=== PATIENT | female | born 1980 | race Caucasian/White ===

== ENCOUNTER 2023-09-03 10:30 | Emergency (ER) | payer MEDICAID, SELFPAY ==
[2023-09-03 10:38] VITALS: BP 99/71; PULSE 102; RESP 16; TEMP 36.5; O2SAT 96
--- NOTE | 2023-09-03 11:18 | DI.RAD_ITS ---
Exam(s) XR FOOT RT COMPLETE EXAM: XR FOOT RT COMPLETE CLINICAL HISTORY: Foot injury. TECHNIQUE: 2D digital imaging was performed of the right foot. Three images were obtained. AP, obl ique and lateral views were obtained. COMPARISON: No exams were available for comparison FINDINGS: BONES: No acute fracture is present. No bony destructive lesion is seen. There is a small enthesophyt e at the posterior calcaneus. JOINTS: No dislocation present. SOFT TISSUE: Normal. IMPRESSION: No acute abnormality. DATA REPOSITORY: RADIATION DOSE DELIVERED:
--- NOTE | 2023-09-03 11:22 | ED.GENADUL_ITS ---
Discharge Plan Disposition Patient Disposition: Home Condition: Stable Discharge Details Clinical Impression: Foot sprain, Contusion of foot Primary Care Provider: Unknown,Unknown ED Provider: Alena Chavez Home Meds and New Rx's Prescriptions: No Action oxycodone 5 mg tablet 7.5 mg PO 5X/DAY Patient Comments: took at 0200 dextroamphetamine-amphetamine [Adderall] 30 mg tablet 30 mg PO DAILY estradiol [Estrace] 1 mg tablet 1 mg PO DAILY Rx Instructions: off 1 week; repeat cycle trazodone 50 mg tablet 50 mg PO QHS PRN Discharge Instructions Instructions: Using Cold for Pain, Minor Contusion ED, Foot Sprain ED Additional Instructions: No evidence of fracture or broken bone noted on x-ray. He may ice, elevate compression for the next 2 to 3 days. Wrap with an Paramjit bandage. Use crutches as needed for comfort weightbearing as tolerated, advance as tolerated. Please take Tylenol or Ibuprofen with food every 4-6 hours as needed for pain and swelling. Follow up with primary care provider in 3-5 days. Return to ED sooner if any worsening or concerns. Stand Alone Forms: Work Release Discharge Data Discharge Date/Time-TO BE ENTERED AT DEPARTURE: 09/03/23 12:54 HPI General Mode of arrival: wheelchair . Date/Time Provider Initiated Documentation: 09/03/23 10:33 . Limitations to Documentation: no limitations . Information obtained by: patient, RN notes reviewed and old records reviewed . HPI Narrative: 43-year-old female presents with right lateral foot pain after mechanical injury at around 2 AM this morning. Patient reports she was coming into the kitchen around an island and accidentally kicked the island, no obvious deformity noted however she does have some superficial abrasions noted to the dorsal side of her toes, some ecchymosis and swelling noted to the dorsum of her foot. Denies any ankle pain, lower leg pain or knee pain. No other associated symptoms or concerns. Patient did take 7.5 mg of oxycodone after the incident. Related Data Home Medications ?Medication ?Instructions ?Recorded ?Confirmed dextroamphetamine-amphetamine 30 30 mg PO DAILY 09/03/23 09/03/23 mg tablet (Adderall) estradiol 1 mg tablet (Estrace) 1 mg PO DAILY 09/03/23 09/03/23 oxycodone 5 mg tablet 7.5 mg PO 5X/DAY 09/03/23 09/03/23 trazodone 50 mg tablet 50 mg PO QHS PRN 09/03/23 09/03/23 Allergies Allergy/AdvReac Type Severity Reaction Status Date / Time Penicillins Allergy Intermediate Hives Verified 09/03/23 10:35 sulfamethoxazole (From Allergy Intermediate Anaphylaxis Verified 09/03/23 10:35 Bactrim) trimethoprim (From Bactrim) Allergy Intermediate Anaphylaxis Verified 09/03/23 10:35 prednisone AdvReac Mild Other (See Verified 09/03/23 10:35 Comment) General Stated Complaint: Orthopedic ELVIRA: 4 Review of Systems Musculoskeletal Musculoskeletal: Reports as per HPI, Reports arthralgias and Reports joint swelling Integumentary/Breasts Skin/Breast: Reports skin swelling and Reports wounds (Superficial abrasions noted to the toes and contusion noted dorsal foot) Exam Extrem Right lower extremity: ankle Details: normal to inspection; no tenderness and no swelling and foot Details: normal capillary refill, abnormal to inspection, tenderness Location: of the dorsal foot and of the lateral foot, abnormal ROM of toe, no edema and abrasion dorsal lateral 5th toe Details: multiple; no foreign bodies and no puncture wound Ankle/foot/toe images: 2 1. Swelling contusion mild superficial abrasions noted to fifth fourth and third toes on the dorsal aspect Course Vital Signs Vital signs: Vital Signs Temperature 36.5 C 09/03/23 10:38 Pulse 102 H 09/03/23 10:38 Respiratory Rate 16 09/03/23 10:38 Blood Pressure 99/71 L 09/03/23 10:38 Pulse Oximetry 96 09/03/23 10:38 Temperature 36.5 C 09/03/23 10:38 Temperature Source Temporal Artery Scan 09/03/23 10:38 Pulse 102 H 09/03/23 10:38 Respiratory Rate 16 09/03/23 10:38 Respiratory Effort Normal, Non-Labored 09/03/23 10:40 Blood Pressure 99/71 L 09/03/23 10:38 Blood Pressure Position Sitting 09/03/23 10:38 Pulse Oximetry 96 09/03/23 10:38 Oxygen Delivery Method Room Air 09/03/23 10:38 Oxygen Flow Rate 0 09/03/23 10:38 Pain Level 6 09/03/23 10:50 Medical Decision Making 43-year-old female presents with right lateral foot pain after mechanical injury at around 2 AM this morning. Patient reports she was coming into the kitchen around an island and accidentally kicked the island, no obvious deformity noted however she does have some superficial abrasions noted to the dorsal side of her toes, some ecchymosis and swelling noted to the dorsum of her foot. Denies any ankle pain, lower leg pain or knee pain. No other associated symptoms or concerns. Patient did take 7.5 mg of oxycodone after the incident. X-ray obtained right foot, no evidence of acute fracture noted. Patient given crutches and Paramjit wrap and instructed on RICE procedures. This text was generated using [employer] dictation system, please disregard any oddities of phrase or misspellings. Imaging Data Radiologic Study #2: Imaging: X-Ray Radiologist's impression: XR FOOT RT COMPLETE EXAM: XR FOOT RT COMPLETE CLINICAL HISTORY: Foot injury. TECHNIQUE: 2D digital imaging was performed of the right foot. Three images were obtained. AP, oblique and lateral views were obtained. COMPARISON: No exams were available for comparison FINDINGS: BONES: No acute fracture is present. No bony destructive lesion is seen. There is a small enthesophyte at the posterior calcaneus. JOINTS: No dislocation present. SOFT TISSUE: Normal. IMPRESSION: No acute abnormality. Quality:SDOH Health Related Social Needs: 2 No Data to Display PFSH All Active Problems (Updated 09/03/23 @ 12:28 by Alena Chavez NP) Contusion of foot (Acute) Foot sprain (Acute) Social History Smoking/Tobacco Use Status: Never Smoking risk assessment performed?: Yes Alcohol Intake: never Drug use: Never Substance use type: does not use Housing: house Do you feel safe at home: Yes Do you feel safe in your relationship?: Yes
--- OUTSIDE RECORDS SUMMARY | 2023-09-03 11:39 | XMS_ITS | Continuity of Care Document ---
Author Organization [facility] Address [address] [place] [address] Care Team Providers Care Manager Ambulatory Name Role Phone Demario Patiño Primary Care Physician [phone] [facility] NBR [id number] Date(s): 03/16/22 - 03/16/22 [facility] [address], [place] [address] Encounter Diagnosis Biceps tendinitis of left upper extremity(Discharge Diagnosis) - 03/16/22 Sprain of left acromioclavicular joint, initial encounter(Discharge Diagnosis) - 03/16/22 Subacromial impingement of left shoulder(Discharge Diagnosis) - 03/16/22 Discharge Disposition: Home or Self Care Attending Physician: YANET Helm Allergies, Adverse Reactions, Alerts Substance Reaction Severity Status erythromycin Rash Unknown Active penicillin Rash Mild Active predniSONE Thrush Other Moderate Active Bactrim Rash Mild Active Assessment and Plan Future Appointments Functional Status 03/16/22 Other exposure to Infectious Disease Non e Medications Adderall 30 mg oral tablet 30 mg 1 tab, Oral, BID, 0 Refill(s) Start Date: 11/22/21 Status: Ordered oxyCODONE 15 mg oral tablet See Instructions, PRN as needed for pain, 1/2 tab Oral, max 5 per day, # 28 tab, 0 Refill(s), Pharmacy: [facility], 152, cm, 01/11/22 12:50:00 EST, Height/Length Dosing, 59, kg, 01/11/22 12:50:00 EST, Weight Dosing Start Date: 01/24/22 Status: Ordered oxyCODONE 7.5 mg oral tablet 7.5 mg = 1 tab, Oral, every 4 hr, 0 Refill(s) Start Date: 11/22/21 Status: Ordered Problem List Condition Confirmation Course Effective Dates Status H ealth Status Informant Acute bilateral low back pain Confirmed Active ADD - Attention deficit disorder Confirmed Active Anxiety disorder Confirmed Active Bacterial pneumonia Confirmed Active Fibromyalgia Confirmed Active H/O: migraine Confirmed Active History of COVID-19 1 Confirmed Active Numbness 2 Confirmed Active Pleurisy Confirmed Active PONV - Postoperative nausea and vomiting Confirmed Active Rheumatic arthritis 3 Confirmed Active 1moderate resp symptoms 2left fingers 3? Procedures Procedure Date Related Diagnosis Body Site Status Arthroscopy Shoulder with AD SLAP RCR (Left) 1 01/16/22 Completed Tenodesis Biceps 2 01/16/22 Comple percy Appendectomy Completed Bilateral tubal ligation Completed Cholecystectomy Completed Dilation and curettage 3 Completed Hysterectomy 4 Completed 1auto-populated from documented surgical case 2auto-populated from documented surgical case 3x2 4vaginal lap assisted Vital Signs Most recent to oldest [Reference Range]: 1 Peripheral Pulse Rate [60-100 bpm] 80 bp m (03/16/22 10:58 AM) Blood Pressure [90-140/60-90 mmHg] 130/8 6mmHg (03/16/22 10:58 AM) Weight 58.97 kg (03/16/22 10:58 AM) Weight Measured (lbs) 130.006 lb (03/16/22 10:58 AM) Height 152.40 cm (03/16/22 10:58 AM) Height/Length Measured (inches) 60 inch (03/16/22 10:58 AM) BSA Measured 1.58 m2 (03/16/22 10:58 AM) Body Mass Index 25.39 kg/m2 (03/16/22 10:58 AM) Social History Social History Type Response Tobacco Current everyday tob acco user Tobacco Use:. 1 PACK PER DAY per day. 15 year(s). Sex Implantable Device List Procedure Provider Procedure Date Device Type Site Tenodesis Biceps Dionte Butler MD 01/16/22 Non Biological Shoulder L Device Identifier Serial Number Lot or Batch Number Manufacturing Date Expiration Date Distinct Identification Code MRI Safety Implantable Status Assigning Authority Unknown Unknown [id number] Unknown 11/10/26 Unknown Unknown Active Unknown Physician Outpatient Note * YANET Helm: PERFORM Event Display: Office Clinic Note Physician Authored Date: [id number] HIRAM FLORES :1980 Age:41 years Sex:Female Visit Date:03/16/2022 Primary Care Physician: Demario Patiño Chief Complaint left shoulder 2nd pov History of Present Illness The patient comes in today with left shoulder pain status post surgery on 01/16/2022.?? She has beenhaving some difficulty in getting her range of motion back with therapy.?? Her motion is limited due to pain. ??She has been doing her exercises at home. ??There has been some issues in having car available to drive to appointments but this is mostly been resolved. ??She has been religiously doing her exercises at home. ??She does have more physical therapy visits made already.?? She denies any numbness or tingling. ??She does get sharp pain in the lateral aspect of her shoulder at times. Physical Exam Vitals & Measurements HR:??80??(Peripheral)?? BP:??130/86?? SpO2:??98%?? HT:??152.40??cm?? WT:??58.97??kg?? BMI:??25.39?? Pain Score:??5?? BSA:??1.58?? General: Alert and oriented x3, pleasant cooperative, in no acute distress, appears to be their stated age, is generally fit appearing.? Left shoulder: Well-healed postoperative incisions. ??Passive forward elevation is comfortable to about 150.?? External rotation is to about 30. ??Internal rotation is to her ASIS.?? Range of motion of her elbow wrist and hand is full. ??Positive Neer's and Peralta testing with tenderness over he r??supraspinatus insertion point.?? Skin distally is pink warm and dry. Assessment/Plan 1.??Biceps tendinitis of left upper extremity??M75.22 2.??Sprain of left acromioclavicular joint, initial encounter??S43.52XA 3.??Subacromial impingement of left shoulder??M75.42 The patient??seems to be making slow progress with her left shoulder.?? Hopefully physical therapy can progress her. ??I counseled her at length on using a lot of ice and Tylenol??after her exercises. ??I am hoping that??things improve in regards to motion so that they can start to strengthen soon.??We will see her back in 6 weeks for a follow-up. Problem List/Past Medical History Ongoing Acute bilateral low back pain ADD - Attention deficit disorder Anxiety disorder Bacterial pneumonia Fibromyalgia H/O: migraine History of COVID-19 Numbness Pleurisy PONV - Postoperative nausea and vomiting Rheumatic arthritis Historical No qualifying data Procedure/Surgical History ???Arthroscopy Shoulder with MARY ALICE SLAP RCR (Left) (01/16/2022)???Tenodesis Biceps (01/16/2022)???Appendectomy???Bilateral tubal ligation???Cholecystectomy???Dilation and curettage???Hysterectomy Medications Adderall 30 mg oral tablet, 30 mg= 1 tab, Oral, BID oxyCODONE 15 mg oral tablet, See Instructions, PRN oxyCODONE 7.5 mg oral tablet, 7.5 mg= 1 tab, Oral, every 4 hr Allergies predniSONE??(Thrush, Other) Bactrim??(Rash) penicillin??(Rash) erythromycin??(Rash) Social History Alcohol Current, Beer- Comments: OCCASIONALLY Electronic Cigarette/Vaping Electronic Cigarette Use: Never. Employment/School Unemployed Substance Use Never Tobacco Current everyday tobacco user Tobacco Use:. 1 PACK PER DAY per day. 15 year(s). Family History Cancer: Mother. Clotting and bleeding disorders: Mother. Hyperlipidemia: Father. Electronically Signed on 03/16/22 12:35 PM YANET Helm Patient Care team information Personnel Name: NoellesteffiDemario eldridge Address: Address: [address]
--- OUTSIDE RECORDS SUMMARY | 2023-09-03 11:40 | XMS_ITS | Continuity of Care Document ---
Author Organization [facility] Address [address] [place] [id number] Care Team Providers Care Staple Fiber Washer Name Role Phone Demario Patiño Primary Care Physician [phone] Encounter [facility] NBR [id number] Date(s): 06/06/22 - 06/06/[address] [address] Discharge Disposition: Home or Self Care Attending Physician: YANET Helm Admitting Physician: YANET Helm Referring Physician: YANET Helm Allergies, Adverse Reactions, Alerts Substance Reaction Severity Status erythromycin Rash Unknown Active penicillin Rash Mild Active predniSONE Thrush Other Moderate Active Bactrim Rash Mild Active Medications Adderall 30 mg oral tablet 30 mg 1 tab, Oral, BID, 0 Refill(s) Start Date: 11/22/21 Status: Ordered oxyCODONE 15 mg oral tablet See Instructions, PRN as needed for pain, 1/2 tab Oral, max 5 per day, # 28 tab, 0 Refill(s), Pharmacy: [facility], 152, cm, 01/11/22 12:50:00 EST, [...] 1 Confirmed Active Numbness 2 Confirmed Active Numbness and tingling in left hand Confirmed Active Pleurisy Confirmed Active PONV - [...] documented surgical case 3x2 4vaginal lap assisted Results Radiology Reports * Exam Date Time Procedure Performing Provider Status 06/06/22 9:51 AM XR Spine Cervical 2 or 3 Views Gallo Barroso; Farooq (Verified) Notes: (XR Spine Cervical 2 or 3 Views) Reason For Exam: Cervical pain and stiffness XR Spine Cervical 2 or 3 Views EXAM DESCRIPTION: XR Spine Cervical 2 or 3 Views 06/06/2022 INDICATION: CERVICAL PAIN AND STIFFNESS COMPARISON: None IMPRESSION: No acute fracture or subluxation. Prevertebral soft tissues are within normal limits No significant spondylotic changes. Intervertebral disc spaces are well maintained throughout the cervical region. Mild facet arthritic changes are suspected bilaterally. JOB #: [id number] Final Signed by: Nelson Barnes MD Signed (Electronic Signature): 06/06/2022 1:03 pm Social History Social History Type Response Tobacco [...] Safety Implantable Status Assigning Authority Unknown Unknown [id number] 1 Unknown 11/10/26 Unknown Unknown Active Unknown XR Cervical spine 2 or 3 Views * Nelson Barnes MD: VERIFY, VERIFY Event Display: Report EXAM DESCRIPTION: XR Spine Cervical 2 or 3 Views 06/06/2022 INDICATION: CERVICAL PAIN AND STIFFNESS COMPARISON: None IMPRESSION: No acute fracture or subluxation. Prevertebral soft tissues are within normal limits No significant spondylotic changes. Intervertebral disc spaces are well maintained throughout the cervical region. Mild facet arthritic changes are suspected bilaterally. JOB #: [id number] Final Signed by: Nelson Barnes MD Signed (Electronic Signature): 06/06/2022 1:03 pm Patient Care team information Care Team Personnel Name: Demario Patiño Position: No Access Member Role: Primary Care Physician Address: Address: [address] Care Team Related Persons Name: NICK GALAVIZ Address: Home [address] [id number] [facility] Name: JENNIFER QUINN Name: LORI FLORES
--- OUTSIDE RECORDS SUMMARY | 2023-09-03 11:40 | XMS_ITS | Continuity of Care Document ---
Author Organization [facility] Address [address] [place] [address] Care Team Providers Care Turn Operator Name Role Phone Demario Patiño Primary Care Physician Encounter [facility] NBR [id number] Date(s): 01/24/22 - 01/24/22 [facility] [address] [place], [place] [address] Encounter Diagnosis Biceps tendinitis of left upper extremity(Discharge Diagnosis) - 01/24/22 Sprain of left acromioclavicular joint, initial encounter(Discharge Diagnosis) - 01/24/22 Subacromial impingement of left shoulder(Discharge Diagnosis) - 01/24/22 Discharge Disposition: Home or Self Care Attending Physician: YANET Helm Allergies, Adverse Reactions, Alerts Substance Reaction Severity Status erythromycin Rash Unknown Active penicillin Rash Mild Active predniSONE Thrush Other Moderate Active Bactrim Rash Mild Active Assessment and Plan Future Appointments Functional Status 01/24/22 Other exposure to Infectious Disease Non e Medications Adderall 30 mg oral tablet 30 mg 1 tab, Oral, BID, 0 Refill(s) Start Date: 11/22/21 Status: Ordered oxyCODONE 15 mg oral tablet See Instructions, PRN as needed for pain, 1/2 tab Oral, max 5 per day, # 28 tab, 0 Refill(s), Pharmacy: [facility], 152, cm, 01/11/22 12:50:00 EST, Height/Length [...] Range]: 1 Peripheral Pulse Rate [60-100 bpm] 104 b pm *HI* (01/24/22 9:52 AM) Blood Pressure [90-140/60-90 mmHg] 110/8 0mmHg (01/24/22 9:52 AM) Weight 59 kg (01/24/22 9:52 AM) Weight Measured (lbs) 130.073 lb (01/24/22 9:52 AM) Height 152 cm (01/24/22 9:52 AM) Height/Length Measured (inches) 59.84 in ch (01/24/22 9:52 AM) BSA Measured 1.58 m2 (01/24/22 9:52 AM) Body Mass Index 25.54 kg/m2 (01/24/22 9:52 AM) Social History Social History Type Response [...] Safety Implantable Status Assigning Authority Unknown Unknown [id number] 1 Unknown 11/10/26 Unknown Unknown Active Unknown Physician Outpatient Note * YANET Helm: PERFORM Event Display: Office Clinic Note Physician Authored Date: [id number] HIRAM FLORES :1980 Age:41 years Sex:Female Visit Date:01/24/2022 Primary Care Physician: Demario Patiño Chief Complaint L shoulder (POV #1) History of Present Illness The patient comes in today status post surgery 1 week ago. ??She had a left shoulder MARY ALICE, DCR,??extensive debridement,??and OBT.?? She has been in quite a bit of pain. ??Unfortunately there was miscommunication and her opiate prescriber??was??unaware that she was having surgery.?? She had to use double her normal amount of pain medicine. ??As she had already??filled 140 tablet??refill of Percocet, we were unable to give a new prescription at the day of surgery.?? She is still in a lot of pain and is out of her pain medicine. ??She has been using her sling and has been doing her exercises. ??She has been taking her aspirin and using ice and Tylenol. Physical Exam Vitals & Measurements HR:??104??(Peripheral)?? BP:??110/80?? SpO2:??97%?? HT:??152??cm?? WT:??59??kg?? BMI:??25.54?? Pain Score:??7?? BSA:??1.58?? Left shoulder has??well approximated incisions without any signs of bleeding or discharge. ??Passive forward elevation is to 60.?? External rotation??is to about 30. ??She can perform hand to chest wall. ??Range of motion of her elbow is stiff but full. ??Skin distally is pink warm and dry. Assessment/Plan 1.??Biceps tendinitis of left upper extremity??M75.22 2.??Sprain of left acromioclavicular joint, initial encounter??S43.52XA 3.??Subacromial impingement of left shoulder??M75.42 The patient comes in today status post the aforementioned procedure. ??I will be giving her a refill of her medication per instructions from her normal prescriber. ??We will do 7.5 mg Percocet??1 tablet up to 5 times a day. ??Her refill from her normal prescriber will be occurring on 02/03/2022 andshe will continue to??get pain medicine from??from them.?? We will get her started on physical therapy. ??We will see her back in 6 weeks. Problem List/Past Medical History Ongoing Acute bilateral low back pain ADD - Attention deficit disorder Anxiety disorder Bacterial pneumonia Fibromyalgia H/O: migraine History of COVID-19 Numbness Pleurisy PONV - Postoperative nausea and vomiting Rheumatic arthritis Historical No qualifying data Procedure/Surgical History ???Arthroscopy Shoulder with MARY ALICE SLAP RCR (Left) (01/16/2022)???Tenodesis Biceps (01/16/2022)???Appendectomy???Bilateral tubal ligation???Cholecystectomy???Dilation and curettage???Hysterectomy Medications !-Percocet 7.5/325 oral tablet, See Instructions, PRN Adderall 30 mg oral tablet, 30 mg= 1 tab, Oral, BID oxyCODONE 7.5 mg oral tablet, 7.5 mg= [...] disorders: Mother. Hyperlipidemia: Father. Electronically Signed on 01/24/22 03:26 PM YANET Helm Patient Care team information Personnel Name: Demario Patiño Address: Address: [address]
--- OUTSIDE RECORDS SUMMARY | 2023-09-03 11:40 | XMS_ITS | Continuity of Care Document ---
Author Organization [facility] Address [address] [place] [address] Care Team Providers Care Hardness Inspector Name Role Phone Demario Patiño Primary Care Physician [phone] Encounter [facility] NBR [id number] Date(s): 05/30/22 - 05/30/[address] [address]- [place] Discharge Disposition: Home or Self Care Attending Physician: YANET Helm Admitting Physician: YANET Helm Allergies, Adverse Reactions, Alerts Substance Reaction Severity Status erythromycin Rash Unknown Active penicillin Rash Mild Active predniSONE Thrush Other Moderate Active Bactrim Rash Mild Active Assessment and Plan Future Appointments Future Scheduled Tests Radiology* XR Spine Cervical 2 or 3 Views 04/18/22 Medications Adderall 30 mg oral tablet 30 mg 1 tab, Oral, BID, 0 Refill(s) Start Date: 11/22/21 Status: Ordered oxyCODONE 15 mg oral tablet See Instructions, PRN as needed for pain, 1/2 tab Oral, max 5 per day, # 28 tab, 0 Refill(s), Pharmacy: [facility], 152, cm, 01/11/22 12:50:00 EST, [...] documented surgical case 3x2 4vaginal lap assisted Social History Social History Type Response Tobacco [...] Safety Implantable Status Assigning Authority Unknown Unknown [id number] 1 Unknown 11/10/26 Unknown Unknown Active Unknown Patient Care team information Care Team Personnel Name: Demario Patiño Position: No Access Member Role: Primary Care Physician Address: Address: [address] Care Team Related Persons Name: NICK GALAVIZ Address: Home [address] [id number] [facility] Name: JENNIFER QUINN Name: LORI FLORES
--- OUTSIDE RECORDS SUMMARY | 2023-09-03 11:40 | XMS_ITS | Continuity of Care Document ---
Author Organization [facility] Address [address] [place] [address] Care Team Providers Care Pillowcase Cutter Name Role Phone Demario Patiño Primary Care Physician [phone] Encounter [facility] NBR [id number] Date(s): 04/18/22 - 04/18/22 [facility] [address], [place] [address] [place] Encounter Diagnosis Biceps tendinitis of left shoulder(Discharge Diagnosis) - 04/18/22 Subacromial impingement of left shoulder(Discharge Diagnosis) - 04/18/22 Cervical myofascial strain(Discharge Diagnosis) - 04/18/22 Discharge Disposition: Home or Self Care Attending Physician: Dionte Butler MD Allergies, Adverse Reactions, Alerts Substance Reaction Severity Status erythromycin Rash Unknown Active penicillin Rash Mild Active predniSONE Thrush Other Moderate Active Bactrim Rash Mild Active Assessment and Plan Future Appointments Future Scheduled Tests Radiology* XR Spine Cervical 2 or 3 Views 04/18/22 Functional Status 04/18/22 Other exposure to Infectious Disease Non e Medications Adderall 30 mg oral tablet 30 mg 1 tab, Oral, BID, 0 Refill(s) Start Date: 11/22/21 Status: Ordered oxyCODONE 15 mg oral tablet See Instructions, PRN as needed for pain, 1/2 tab Oral, max 5 per day, # 28 tab, 0 Refill(s), Pharmacy: [facility], 152, cm, 01/11/22 12:50:00 EST, [...] Range]: 1 Peripheral Pulse Rate [60-100 bpm] 75 bp m (04/18/22 10:18 AM) Blood Pressure [90-140/60-90 mmHg] 110/8 0mmHg (04/18/22 10:18 AM) Weight 60.33 kg (04/18/22 10:18 AM) Weight Measured (lbs) 133.005 lb (04/18/22 10:18 AM) Height 152.4 cm (04/18/22 10:18 AM) Height/Length Measured (inches) 60 inch (04/18/22 10:18 AM) BSA Measured 1.6 m2 (04/18/22 10:18 AM) Body Mass Index 25.98 kg/m2 (04/18/22 10:18 AM) Social History Social History Type Response [...] Safety Implantable Status Assigning Authority Unknown Unknown [id number] Unknown 11/10/26 Unknown Unknown Active Unknown Hospital Discharge Instructions Follow Up Care 01/23/2022 14:41:57 With:Follow up with Orthopedic Address: When:Within 6 Week(s) Physician Outpatient Note * Dionte Butler MD: PERFORM Event Display: Office Clinic Note Physician Authored Date: [id number] HIRAM FLORES :1980 Age:41 years Sex:Female Visit Date:04/18/2022 Primary Care Physician: Demario Patiño Chief Complaint LEFT SHOULDER 3 MONTH History of Present Illness The patient presents for follow-up of her left shoulder status post MARY ALICE, DCR, debridement, and OBTon 01/16/2022.?? She has had issues with regaining motion of??her left shoulder secondary to compliance issues??with physical therapy.?? She states that she has been faithful about an HEP but stopped physical therapy??as she has been??dealing with her daughter??who has had recurrent kidney issues.??She states that she has regained??much of her range of motion. ??She continues with soreness anteriorly about the shoulder.?? She believes that??her progress has been limited by trapezial pain that radiates to her neck and has noticed stiffness of her neck since the time of her incident.?? The patient has had??numbness and tingling in the ulnar 2 digits of her hand and states that her hand will oftentimes feel colder than the right.?? Her neck??and trapezial region have been waking her up at night. ??She has been taking acetaminophen??to address the shoulder. ??She??also takes??chronic oxycodone for back issues and??has intermittently felt that this has helped her shoulder and neck as well. Review of Systems Review of systems is significant for neck pain and stiffness, numbness and tingling in the left upper extremity,??and left shoulder stiffness Physical Exam Vitals & Measurements HR:??75??(Peripheral)?? BP:??110/80?? SpO2:??99%?? HT:??152.4??cm?? WT:??60.33??kg?? BMI:??25.98?? Pain Score:??4?? BSA:??1.6?? The patient's left??upper??extremity is neurovascularly intact. ??Sensation and motor exam are intact distally. ??All digits are warm and pink.?? Surgical wounds are well-healed. ??No Joseph deformity is present. ??Active forward elevation is to 140 degrees. ??External rotation is to 45 degrees. ??Internal rotation behind back is to L2.?? This is in comparison to 170/75/T7 for the right side. ??Passively, she demonstrates full??forward elevation.?? Strength is??5- out of 5 to forward elevation,5 out of 5 to external and internal rotation strength testing. ??She has tenderness about the anterior aspect of the??humeral head??lateral to her bicipital groove. ?? The patient demonstrates decrease??left cervical rotation and bend. ??She demonstrates mild spasm of the trapezius??and??left paracervical musculature.?? L'Hermitte's sign is negative. ??Spurling's test is positive for pain only.?? She demonstrates tenderness about the trapezius and??posterior lateral??left side of her neck. Assessment/Plan 1.??Biceps tendinitis of left shoulder??M75.22 Ordered: XR Spine Cervical 2 or 3 Views, 04/18/22, Routine, Reason: Cervical pain and stiffness, Transport Mode: Ambulatory, Biceps tendinitis of left shoulder Subacromial impingement of left shoulder Cervical myofascial strain ?? 2.??Subacromial impingement of left shoulder??M75.42 Ordered: XR Spine Cervical 2 or 3 Views, 04/18/22, Routine, Reason: Cervical pain and stiffness, Transport Mode: Ambulatory, Biceps tendinitis of left shoulder Subacromial impingement of left shoulder Cervical myofascial strain ?? 3.??Cervical myofascial strain??S16.1XXA Ordered: XR Spine Cervical 2 or 3 Views, 04/18/22, Routine, Reason: Cervical pain and stiffness, Transport Mode: Ambulatory, Biceps tendinitis of left shoulder Subacromial impingement of left shoulder Cervical myofascial strain ?? The patient continues to gradually regain her motion of her left shoulder largely with an HEP.?? Inaddition to the exercises that she is already performing, I counseled the patient on a series of supine, gravity assisted??stretching exercises??to??emphasize terminal forward elevation??and externalrotation motions.?? I also discussed and demonstrated the counter stretch to maximize posterior capsular??stretch to??increase internal rotation behind the back.?? We will furnish the patient with the AAOS exercises for the neck.?? I discussed the possibility of a corticosteroid injection to the left shoulder should she not improve by next visit.?? Should she continue with??neck pain, I would like to obtain cervical spine x-rays on return to clinic. ??The patient verbalized understanding and all questions were answered. Future Orders XR Spine Cervical 2 or 3 Views, 04/18/22, Routine, Reason: Cervical pain and stiffness, Transport Mode: Ambulatory, Biceps tendinitis of left shoulder Subacromial impingement of left shoulder Cervical myofascial strain Follow Up Instructions With When Contact Information Follow up with Orthopedic In 6 weeks Additional Instructions: Problem List/Past Medical History Ongoing Acute bilateral [...] disorders: Mother. Hyperlipidemia: Father. Electronically Signed on 04/18/22 10:50 AM Dionte Butler MD Patient Care team information Care Team Personnel Name: Demario Patiño Position: No Access Member Role: Primary Care Physician Address: Address: [address] [address] [place] Care Team Related Persons Name: NICK GALAVIZ Address: Home [address] [place] [phone] [facility] Name: JENNIFER QUINN Name: LORI FLORES
--- OUTSIDE RECORDS SUMMARY | 2023-09-03 11:40 | XMS_ITS | Continuity of Care Document ---
Author Organization [facility] Address [address] [facility] [place] [address] Care Team Providers Care Spiritual Counselor Name Role Phone Demario Patiño Primary Care Physician [phone] Encounter [facility] NBR [id number] Date(s): 11/22/21 - 11/22/21 [facility] [address] [place] [address] [place] Encounter Diagnosis Subacromial impingement of left shoulder(Discharge Diagnosis) - 11/22/21 Sprain of left acromioclavicular joint, initial encounter(Discharge Diagnosis) - 11/22/21 Biceps tendinitis of left upper extremity(Discharge Diagnosis) - 11/22/21 Discharge Disposition: Home or Self Care Attending Physician: YANET Helm Referring Physician: Demario Patiño Allergies, Adverse Reactions, Alerts Substance Reaction Severity Status penicillin Rash Mild Active predniSONE Other Moderate Active Bactrim Rash Mild Active Medications Adderall 30 mg oral tablet 30 mg 1 tab, Oral, BID, 0 Refill(s) Start Date: 11/22/21 Status: Ordered oxyCODONE 7.5 mg oral tablet 7.5 mg = 1 tab, Oral, every 4 hr, 0 Refill(s) Start Date: 11/22/21 Status: Ordered Problem List Condition Confirmation Course Effective Dates Status Health St atus Informant Acute bilateral low back pain Confirmed Active Vital Signs Most recent to oldest [Reference Range]: 1 Peripheral Pulse Rate [60-100 bpm] 98 bp m (11/22/21 9:49 AM) Blood Pressure [90-140/60-90 mmHg] 118/7 2mmHg (11/22/21 9:49 AM) Weight 56.70 kg (11/22/21 9:49 AM) Weight Measured (lbs) 125.002 lb (11/22/21 9:49 AM) Height 152.40 cm (11/22/21 9:49 AM) Height/Length Measured (inches) 60 inch (11/22/21 9:49 AM) BSA Measured 1.55 m2 (11/22/21 9:49 AM) Body Mass Index 24.41 kg/m2 (11/22/21 9:49 AM) Social History Social History Type Response Tobacco Current everyday tob acco user Tobacco Use:. 1 PACK PER DAY per day. 16 year(s). Sex Hospital Discharge Instructions Follow Up Care 11/07/2021 11:59:50 With:Surgery Address: When: Unknown Patient Care team information Personnel Name: Demario Patiño Address: Address: [address] [address]
--- OUTSIDE RECORDS SUMMARY | 2023-09-03 11:40 | XMS_ITS | Continuity of Care Document ---
Author Organization [facility] Address [address] [place] [address] Care Team Providers Care Product Safety Manager Name Role Phone JOSE PATEL Primary Care Physician Encounter [facility] NBR [id number] Date(s): 10/18/22 - 10/18/[address] [address] [place] Encounter Diagnosis Bronchitis(Discharge Diagnosis) - 10/18/22 Asthma exacerbation(Discharge Diagnosis) - 10/18/22 Knee sprain(Discharge Diagnosis) - 10/18/22 Discharge Disposition: Home or Self Care Attending Physician: Nacho Thomas MD Admitting Physician: Nacho Thomas MD Allergies, Adverse Reactions, Alerts Substance Reaction Severity Status erythromycin Rash Unknown Active penicillin Rash Mild Active predniSONE Thrush Other Moderate Active Bactrim Rash Mild Active Functional Status 10/18/22 Other exposure to Infectious Disease Non e Medications Adderall 30 mg oral tablet 30 mg 1 tab, Oral, BID, 0 Refill(s) Start Date: 11/22/21 Status: Ordered albuterol 90 mcg/inh aerosol inhaler 1 puffs, Inhale, every 4 hr, PRN as needed for wheezing, Dispense 1 spacer, # 8.5 g, 0 Refill(s), 10/25/22 5:36:00 PM CDT, Pharmacy: [facility] #[id number], 152, cm, 10/18/22 17:57:00 EDT, Height/Length Dosing, 60, kg, 10/18/22 17:57:00 EDT, Weight Dosing Start Date: 10/18/22 Stop Date: 10/25/22 Status: Ordered amoxicillin 875 mg oral tablet 875 mg = 1 tab, Oral, BID, X 7 days, # 14 tab, 0 Refill(s), 10/25/22 5:35:00 PM CDT, Pharmacy: [facility] #[id number], 152, cm, 10/18/22 17:57:00 EDT, Height/Length Dosing, 60, kg, 10/18/22 17:57:00 EDT, Weight Dosing Start Date: 10/18/22 Stop Date: 10/25/22 Status: Ordered oxyCODONE 15 mg oral tablet See Instructions, PRN as needed for pain, 1/2 tab Oral, max 5 per day, # 28 tab, 0 Refill(s), Pharmacy: [facility], 152, cm, 01/11/22 12:50:00 EST, Height/Length Dosing, 59, kg, 01/11/22 12:50:00 EST, Weight Dosing Start Date: 01/24/22 Status: Ordered oxyCODONE 7.5 mg oral tablet 7.5 mg = 1 tab, Oral, every 4 hr, 0 Refill(s) Start Date: 11/22/21 Status: Ordered predniSONE 20 mg oral tablet 40 mg = 2 tab, Oral, Daily, PRN wheezing, # 10 tab, 0 Refill(s), Pharmacy: [facility] #[id number], 152, cm, 10/18/22 17:57:00 EDT, Height/Length Dosing, 60, kg, 10/18/22 17:57:00 EDT, Weight Dosing Start Date: 10/18/22 Stop Date: 10/23/22 Status: Ordered Mental Status 10/18/22 Eye Opening Response [place] Spontaneous ly Best Verbal Response [place] Oriented Best Motor Response [place] Obeys comman ds [place] Coma Score 15 Problem List Condition Confirmation Course Effective Dates [...] surgical case 3x2 4vaginal lap assisted Results Laboratory List Name Date SARS-CoV-2 (Covid-19) AG ([facility]) POCT 10/18/22 Most recent to oldest [Reference Range]: 1 SARS-CoV or CoV-2 (COVID-19) Ag ([facility]) [Negative] Negative (10/18/22 4:40 PM) Employed in healthcare? Unknown *NA* (10/18/22 4:40 PM) Symptomatic as defined by CDC? Unknown *NA* (10/18/22 4:40 PM) Date of onset (Lab) Unknown *NA* (10/18/22 4:40 PM) Hospitalized due to COVID-19? Unknown *NA* (10/18/22 4:40 PM) In ICU? Unknown *NA* (10/18/22 4:40 PM) Group care resident? Unknown *NA* (10/18/22 4:40 PM) status? Unknown *NA* (10/18/22 4:40 PM) Radiology Reports * Exam Date Time Procedure Performing Provider Status 10/18/22 6:26 PM XR Chest 1 View Mitch Nichols ( Verified) Notes: (XR Chest 1 View) Reason For Exam: cough XR Chest 1 View PROCEDURE INFORMATION: Exam: XR Chest Exam date and time: 10/18/2022 6:01 PM Age: 42 years old Clinical indication: Cough TECHNIQUE: Imaging protocol: Radiologic exam of the chest. Views: 1 view. COMPARISON: CT CHEST W CONTRAST 08/18/2020 5:07 PM FINDINGS: Lungs: No evidence of focal consolidation. Pleural spaces: Unremarkable. No pleural effusion. No pneumothorax. Heart/Mediastinum: Unremarkable. No cardiomegaly. Bones/joints: Unremarkable. IMPRESSION: No evidence of focal consolidation. THIS DOCUMENT HAS BEEN ELECTRONICALLY SIGNED BY RAPHAEL AZAR MD on 10/18/2022 06:33 PM Final Signed by: Raphael Azar MD Signed (Electronic Signature): 10/18/2022 6:33 pm Vital Signs Most recent to oldest [Reference Range]: 1 2 Temperature Temporal Artery [36-38 Deg C ] 36.1 Deg C (10/18/22 5:17 PM) Peripheral Pulse Rate [60-100 bpm] 80 bp m (10/18/22 6:30 PM) 78 bpm (10/18/22 5:17 PM) Respiratory Rate [12-24 br/min] 16 br/mi n (10/18/22 6:30 PM) 18 br/min (10/18/22 5:17 PM) Blood Pressure [90-140/60-90 mmHg] 103/7 1mmHg (10/18/22 6:30 PM) 130/63mmHg (10/18/22 5:17 PM) Weight Dosing 60.00 kg (10/18/22 5:57 PM) Weight Estimated 60.00 kg (10/18/22 5:17 PM) Height/Length Dosing 152.000 cm (10/18/22 5:57 PM) Height/Length Estimated 152.000 cm (10/18/22 5:17 PM) Social History Social History Type Response Tobacco [...] Safety Implantable Status Assigning Authority Unknown Unknown [id number] 1 Unknown 11/10/26 Unknown Unknown Active Unknown Emergency department Discharge instructions * William CHIN, Nacho Craven: PERFORM Event Display: ED Discharge Information Authored Date: [id number] HIRAM FLORES :1980 Age:42 years Sex:Female Visit Date:10/18/2022 Primary Care Physician: JOSE PATEL Discharge Instructions We would like to thank you for allowing us to assist you with your healthcare needs. The following includes patient education materials and information regarding your injury/illness. Diagnosis from Today's Visit Bronchitis Asthma exacerbation Knee sprain Discharge Vitals Temperature??(Temporal Artery) 97.0 ??F (36.1 ??C) Heart Rate??(Peripheral) 80 Respiratory Rate?? 16 Blood Pressure?? 103/71?? Height?? 59.84 in (152.000 cm) Weight??(Estimated) 132.30 lb (60.00 kg) Allergies predniSONE??(Thrush, Other) Bactrim??(Rash) penicillin??(Rash) erythromycin??(Rash) What to Do Next Instructions from Your Care Team Stop smoking;??it is terrible for your lungs and overall health.?? Increase use of your albuterol inhaler to 1 to 2 puffs up to 4 times a day with a spacer.?? If that does not improve your coughing along with the??antibiotics,??start prednisone 40 mg once a day for 5 days.?? If starting prednisone use nystatin (in the past you have had thrush when you have been on prednisone). ??I am writing you for Augmentin (which is amoxicillin/clavulanic acid);??you have been given it previously with no reactions (although it is penicillin related you apparently have tolerated it with no problems. ??I didnot appreciate a pneumonia on your chest x-ray. ??Return to emergency if you develop high fevers,??coughing up blood, severe shortness of breath, severe chest pain or anything else acutely worsens.??Follow-up with orthopedics regarding your??knee discomfort; you do not have significant fluid in your joint??but if you have??persistent discomfort you should be reevaluated. You were treated today on an emergency basis; it may be noble to contact your primary care provider to notify them of your visit today. You may have been referred to your regular doctor or a specialist, please follow up as instructed. If your condition worsens or you can't get in to see the doctor, contact the Emergency Department. Medications What How Much When Why Instructions Next Dose New albuterol (albuterol 90 mcg/ inh aerosol inhaler) 1 Puffs Inhale (breathe in) Every 4 hours as needed for as needed for wheezing Bronchitis Asthma exacerbation Knee sprain Dispense 1 spacer ?? Pickup at [facility] #[id number] New amoxicillin (amoxicillin 875 mg oral tablet) 1 tab Oral (given by mouth) 2 times a day Bronchitis Asthma exacerbation Knee sprain Duration: 7 Days Pickup at [facility] #[id number] New predniSONE (predniSONE 20 mg oral tablet) 2 tab Oral (given by mouth) Every day as needed for wheezing Bronchitis Asthma exacerbation Knee sprain Duration: 5 Days Pickup at [facility] #[id number] Unchanged dextroamphetamine-amphetamine (Adderall 30 mg oral tablet) 1 tab Oral (given by mouth) 2 times a day Unchanged oxyCODONE (oxyCODONE 15 mg oral tablet) See instructions Biceps tendinitis of left upper extremity Sprain of left acromioclavicular joint, initial encounter Subacromial impingement of left shoulder 1/ 2 ??tab Oral, max 5 per day, As needed for as needed for pain ?? Unchanged oxyCODONE (oxyCODONE 7.5 mg oral tablet) 1 tab Oral (given by mouth) Every 4 hours Pharmacy Information [facility] #[id number]: [address] [place], [place] [phone] Tests Performed Radiology XR Chest 1 View 10/18/2022 18:33 EDT Lab Test Name Test Result Date/Time SARS-CoV or CoV-2 (COVID-19) Ag ([facility]) Negative 10/18/2022 16:40 EDT Employed in healthcare? Unknown 10/18/2022 16:40 EDT Symptomatic as defined by CDC? Unknown 10/18/2022 16:40 EDT Date of onset (Lab) Unknown 10/18/2022 16:40 EDT Hospitalized due to COVID-19? Unknown 10/18/2022 16:40 EDT In ICU? Unknown 10/18/2022 16:40 EDT Group care resident? Unknown 10/18/2022 16:40 EDT status? Unknown 10/18/2022 16:40 EDT Patient/Muffler Mechanic Signature Patient Name:HIRAM FLORES I have received this information and my questions have been answered. Patient/Muffler Mechanic Name: Patient/Muffler Mechanic Signature: Relationship to Patient: Witness Name/Signature: Date: Electronically Signed on: 10/18/2022 19:08 EDTSigned by:MALI Patient Care team information Care Team Personnel Name: JOSE PATEL Position: No Access Member Role: Primary Care Physician Address: Address: [address] Name: Nacho Thomas MD Position: Physician Member Role: ED Physician Address: Address: [facility] [address] [place] [address] Care Team Related Persons Name: NICK GALAVIZ Address: Home [address] [place], [place] [phone] [facility] Address: Mailing [address] [place], [place] [phone] Name: JENNIFER QUINN Name: JENNIFER BURTON Address: Home [address] [place] [address] [facility] Address: Mailing [address] [place], [place] [phone] Name: LORI FLORES
--- OUTSIDE RECORDS SUMMARY | 2023-09-03 11:40 | XMS_ITS | Continuity of Care Document ---
Author Organization [facility] Address [address] [place] [address] Care Team Providers Care Flash Welding Machine Operator Name Role Phone Demario Patiño Primary Care Physician Encounter [facility] NBR [id number] Date(s): 06/06/22 - 06/06/22 [facility] [address] [place] [place], [place] [address] Encounter Diagnosis Numbness and tingling in left hand(Discharge Diagnosis) - 06/06/22 Paresthesia of skin(Discharge Diagnosis) - 06/06/22 Biceps tendinitis of left shoulder(Discharge Diagnosis) - 06/06/22 Cervical myofascial strain(Discharge Diagnosis) - 06/06/22 Subacromial impingement of left shoulder(Discharge Diagnosis) - 06/06/22 Sprain of left acromioclavicular joint, initial encounter(Discharge Diagnosis) - 06/06/22 Discharge Disposition: Home or Self Care Attending Physician: YANET Helm Allergies, Adverse Reactions, Alerts Substance Reaction Severity Status erythromycin Rash Unknown Active penicillin Rash Mild Active predniSONE Thrush Other Moderate Active Bactrim Rash Mild Active Functional Status 06/06/22 Other exposure to Infectious Disease Non e Medications Adderall 30 mg oral tablet 30 mg 1 tab, Oral, BID, 0 Refill(s) Start Date: 11/22/21 Status: Ordered oxyCODONE 15 mg oral tablet See Instructions, PRN as needed for pain, 1/2 tab Oral, max 5 per day, # 28 tab, 0 Refill(s), Pharmacy: [facility], 152, cm, 01/11/22 12:50:00 EST, [...] Range]: 1 Peripheral Pulse Rate [60-100 bpm] 72 bp m (06/06/22 9:47 AM) Blood Pressure [90-140/60-90 mmHg] 118/7 0mmHg (06/06/22 9:47 AM) Weight 61.23 kg (06/06/22 9:47 AM) Weight Measured (lbs) 134.989 lb (06/06/22 9:47 AM) Height 152.4 cm (06/06/22 9:47 AM) Height/Length Measured (inches) 60 inch (06/06/22 9:47 AM) BSA Measured 1.61 m2 (06/06/22 9:47 AM) Body Mass Index 26.36 kg/m2 (06/06/22 9:47 AM) Social History Social History Type Response [...] Safety Implantable Status Assigning Authority Unknown Unknown [id number] Unknown 11/10/26 Unknown Unknown Active Unknown Physician Outpatient Note * YANET Helm: PERFORM Event Display: Office Clinic Note Physician Authored Date: [id number] HIRAM FLORES :1980 Age:42 years Sex:Female Visit Date:06/06/2022 Primary Care Physician: Demario Patiño Chief Complaint LEFT SHOULDER\CSPINE History of Present Illness The patient comes in today status post surgery on 01/16/2022. ??She left shoulder??arthroscopy, MARY ALICE, DCR, debridement, and OBT.?? 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 ??This is made getting to physical therapy difficult for her. ??She has been doing a home exercise program for her shoulder as well as her neck??prescribed by us. ??She is not finding that she has made any improvement with either her neck or her shoulder since last being seen.?? She was complaining of numbness and tingling in her ulnar 2 digits although now she is complaining of left hand numbness and tingling in all of her digits.?? She states that??many years ago, she underwent an EMG nerve conduction study test??done by ??[facility]. ??This had shown mild carpal tunnel syndrome at the time.?? She has been treating this conservatively since that time.?? She continues to get pain in her trapezius on the left side all the way up into her neck.?? Her shoulder is still lacking strength. ??She is trying to do more around the house but the lack of strength is??preventing her??from progressing. Review of Systems Other than the HPI is negative Physical Exam Vitals & Measurements HR:??72??(Peripheral)?? BP:??118/70?? SpO2:??98%?? HT:??152.4??cm?? WT:??61.23??kg?? BMI:??26.36?? Pain Score:??6?? BSA:??1.61?? General: Alert and oriented x3, pleasant cooperative, in no acute distress, appears to be their stated age, is generally fit appearing.? Left shoulder:??Full??range of motion??in all planes although terminal ends of forward elevationis??painful for her.?? Positive Neer's and Epralta testing.?? She has 5- out of 5 strength of forward elevation,??external and internal rotation.?? She does have tight trapezius although no obvious muscle spasms are noted today.?? Range of motion of her neck is limited with??rotation and extension.?? Skin distally is pink warm and dry.?? Mildly positive Phalen's??at the wrist. Assessment/Plan 1.??Numbness and tingling in left hand??R20.0 2.??Biceps tendinitis of left shoulder??M75.22 3.??Cervical myofascial strain??S16.1XXA 4.??Subacromial impingement of left shoulder??M75.42 5.??Sprain of left acromioclavicular joint, initial encounter??S43.52XA Paresthesia of skin??R20.2 The patient comes in today status post the aforementioned procedure on her left shoulder. ??I believe she is in need of formal physical therapy for strengthening and conditioning at this point.?? Shecan arrange her schedule with therapy??as she does have limitations.?? In addition, I would like toobtain an EMG nerve conduction study test as now all of her fingers have numbness and tingling in them. ??She has a prior history of??carpal tunnel syndrome??although??need to evaluate this further at this point.?? We will see her back after the??nerve conduction study test is complete with further suggestions at that time. Referral Orders Referral Management, Medical Service: Neurology, Reason: EMG left upper extremity AVH. rule out carpal tunnel vs cervical radiculopathy, Start: 06/06/22, Instructions: Yo Referral Management, Medical Service: Occupational Therapy, Reason: LRH: Left shoulder strengthening and conditioning, Start: 06/06/22 Problem List/Past Medical History Ongoing Acute bilateral low back pain ADD - Attention deficit disorder Anxiety disorder Bacterial pneumonia Fibromyalgia H/O: migraine History of COVID-19 Numbness Numbness and tingling in left hand Pleurisy PONV - Postoperative nausea and vomiting [...] Clotting and bleeding disorders: Mother. Hyperlipidemia: Father. Diagnostic Results Diagnostic Study Interpretation: X-rays taken today of her cervical spine??are unremarkable??other than??mild facet arthritic changes bilaterally.?? Electronically Signed on 06/06/22 02:11 PM YANET Helm Neurology Progress note * Event Display: Neurology Progress Note Patient Care team information Care Team Personnel Name: Demario Patiño Position: No Access Member Role: Primary Care Physician Address: Address: [address] [address] Care Team Related Persons Name: NICK GALAVIZ Address: Home [address] [phone] [facility] Name: JENNIFER QUINN Name: LORI FLORES
--- OUTSIDE RECORDS SUMMARY | 2023-09-03 11:40 | XMS_ITS | Continuity of Care Document ---
Author Organization [facility] Address [address] [place] [address] Care Team Providers Care Plumber'S Assistant Name Role Phone TROY ANDERSON APRN Primary Care Physician Encounter [facility] NBR [id number] Date(s): 11/29/22 - 11/29/[address] [address]- Encounter Diagnosis Encounter for general adult medical examination with abnormal findings(Final) - Hyperlipidemia, unspecified(Final) - Hyperglycemia, unspecified(Final) - Discharge Disposition: Home or Self Care Attending Physician: MONICA MURILLO ([facility])TROY Admitting Physician: [facility] Allergies, Adverse Reactions, Alerts Substance Reaction Severity Status erythromycin Rash Unknown Active Bactrim Rash Mild Active predniSONE Thrush Other Moderate Active penicillin Rash Mild Active Medications Adderall 30 mg oral tablet 30 mg 1 tab, Oral, BID, 0 Refill(s) Start Date: 11/22/21 Status: Ordered oxyCODONE 15 mg oral tablet See Instructions, PRN as needed for pain, 1/2 tab Oral, max 5 per day, # 28 tab, 0 Refill(s), Pharmacy: [facility], 152, cm, 01/11/22 [...] wheezing, # 10 tab, 0 Refill(s), [facility]acy: [id number], 152, cm, 10/18/22 17:57:00 EDT, Height/Length Dosing, 60, kg, 10/18/22 17:57:00 EDT, Weight Dosing Start Date: 10/18/22 Stop Date: 10/23/22 Status: Ordered Problem List Condition Confirmation Course [...] lap assisted Results Laboratory List Name Date Automated Diff 11/29/22 CBC w/ Diff 11/29/22 Comprehensive Metabolic Panel 11/29/22 Free T4 11/29/22 Hgb A1c 11/29/22 Lipid Panel 11/29/22 Thyroid Stimulating Hormone 11/29/22 Most recent to oldest [Reference Range]: 1 WBC [4.8-10.8 K/mcL] 8.3 K/mcL (11/29/22 9:33 AM) RBC [4.20-5.40 Million/mcL] 4.92 Million /mcL (11/29/22 9:33 AM) Neutro Auto [42.2-75.2 %] 54.9 % (11/29/22 9:33 AM) Lymph Auto [20.5-51.1 %] 33.7 % (11/29/22 9:33 AM) Washburn Auto [1.7-9.3 %] 8.0 % (11/29/22 9:33 AM) Basophil Auto [0.0-0.8 %] 0.5 % (11/29/2233 AM) BUN [8-26 mg/dL] 17 mg/dL (11/29/22:33 AM) Cholesterol Total [129-209 mg/dL] 301 mg /dL *HI* (11/29/22: AM) LDL 229.0 mg/dL 1 *NA* (11/29/22: AM) Glucose Level [74-106 mg/dL] 82 mg/dL (11/29/22: AM) Potassium Level [3.5-5.1 mmol/L] 4.4 mmo l/L (11/29/22: AM) Baso Absolute [0.0-0.2 K/mcL] 0.0 K/mcL (11/29/22 AM) MCV [81.0-99.0 fL] 93.9 fL (11/29/22 AM) HDL [40-80 mg/dL] 49 mg/dL (11/29/22: AM) T4 Free [0.61-1.12 ng/dL] 0.84 ng/dL 2 (11/29/22 AM) AST [15-41 IntlUnit/L] 18 IntlUnit/L (11/29/22: AM) ALT [14-54 IntlUnit/L] 18 IntlUnit/L (11/29/22: AM) MCHC [32.0-36.0 g/dL] 32.0 g/dL (11/29/22: AM) Osmolality [275-295 mOsm/kg] 284 mOsm/kg (11/29/22: AM) Sodium Level [134-143 mmol/L] 142 mmol/L (11/29/22:33 AM) Chol/HDL 6.1 3 *NA* (11/29/22 AM) Lymph Absolute [1.2-3.4 K/mcL] 2.8 K/mcL (11/29/22 AM) Hct [37.0-47.0 %] 46.2 % (11/29/22: AM) Triglycerides [10-150 mg/dL] 115 mg/dL (11/29/22 AM) Calcium Level [8.9-10.3 mg/dL] 10.0 mg/d L (11/29/22 9:33 AM) Washburn Absolute [0.1-0.6 K/mcL] 0.7 K/mcL *HI* (11/29/22 9:33 AM) Albumin Level [3.5-5.0 g/dL] 4.3 g/dL (11/29/22 9:33 AM) Protein Total [6.5-8.1 g/dL] 7.1 g/dL (11/29/22 9:33 AM) MCH [27.0-31.0 pg] 30.1 pg (11/29/22 9:33 AM) Neutro Absolute [1.4-6.5 K/mcL] 4.6 K/mc L (11/29/22 9:33 AM) Bilirubin Total [0.2-1.2 mg/dL] 0.6 mg/d L (11/29/22 9:33 AM) Hgb [12.0-16.0 g/dL] 14.8 g/dL (11/29/22 9:33 AM) Alk Phos [38-130 IntlUnit/L] 33 IntlUnit /L *LOW* (11/29/22 9:33 AM) MPV [7.4-10.4 fL] 10.7 fL *HI* (11/29/22 9:33 AM) Platelets [130-400 K/mcL] 250 K/mcL (11/29/22 9:33 AM) CO2 [22-32 mmol/L] 27 mmol/L (11/29/22 9:33 AM) Eos Absolute [0.0-0.2 K/mcL] 0.2 K/mcL (11/29/22 9:33 AM) TSH [0.45-5.33 mcIntlUnit/mL] 0.83 mcInt lUnit/mL (11/29/22 9:33 AM) eAvg Glucose [70-105 mg/dL] 117 mg/dL *HI* (11/29/22 9:33 AM) Chloride Level [98-111 mmol/L] 106 mmol/ L (11/29/22 9:33 AM) RDW-CV [11.5-14.5 %] 13.6 % (10/18/23 9:33 AM) A/G Ratio [1.0-2.5 g/dL] 1.5 g/dL (11/29/22 9:33 AM) BUN/Creat Ratio [8.0-20.0] 22.1 *HI* (11/29/22 9:33 AM) Globulin [2.3-3.5 g/dL] 2.8 g/dL (11/29/22 9:33 AM) Imm Gran Absolute [0.00-0.02 K/mcL] 0.02 K/mcL (11/29/22 9:33 AM) Imm Gran Auto [0.0-0.5 %] 0.2 % (11/29/22 9:33 AM) Hgb A1c Percent [4.0-6.0 %] 5.7 % (11/29/22 9:33 AM) .Hb 15.5 g/dL *NA* (11/29/22 9:33 AM) .Hgb A1c 0.6 g/dL *NA* (11/29/22 9:33 AM) Creatinine Level [0.44-1.00 mg/dL] 0.77 mg/dL (11/29/22 9:33 AM) Anion Gap [3.0-12.0] 9.0 (11/29/22 9:33 AM) Eos, Auto [0.00-3.00 %] 2.70 % (11/29/22 9:33 AM) eGFR CKD-EPI [>=60 mL/min/1.73 m2] 99 mL /min/1.73 m2 (11/29/22 9:33 AM) 1Interpretive Data: Optimal: Less than 100 mg/dL Above Optimal: 100 - 129 mg/dL Borderline High: 130 - 159 mg/dL High: 160 - 189 mg/dL Very High: > or = 190 mg/dL 2Interpretive Data: Possible Interfering Substance: Biotin > 10 ng/mL may falsely elevate Free O4tupfkow. 3Interpretive Data: RISK MALE FEMALE 1/2 average 3.4 3.3 Average 5.0 4.4 2x Average 9.6 7.1 3x Average 23.4 11.0 Social History Social History Type Response Tobacco [...] Safety Implantable Status Assigning Authority Unknown Unknown [id number] 1 Unknown 11/10/26 Unknown Unknown Active Unknown Patient Care team information Care Team Personnel Name: MONICA MURILLO ([facility])TROY Position: No Access Member Role: Primary Care Physician Address: Address: [address] [place] [address] Care Team Related Persons Name: NICK GALAVIZ Address: Home [address] [phone] Address: [address] [place] [phone] Name: JENNIFER QUINN Name: JENNIFER BURTON Address: Home [address] [place] [address] [facility] Address: [address]ailing [address] [phone] Name: LORI FLORES
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
--- OUTSIDE RECORDS SUMMARY | 2023-09-03 11:40 | XMS_ITS | Continuity of Care Document ---
Author Organization [facility] Address [address] [place] [address] Care Team Providers Care Bridge Attacher Name Role Phone Demario Patiño Primary Care Physician Encounter [facility]BR [id number] Date(s): 07/05/22 - 08/22/[address] [address] [place] Discharge Disposition: Home-No Follow Up Attending Physician: Ivory Jeff, OTR/L Admitting Physician: YANET Helm Referring Physician: YANET [...] Safety Implantable Status Assigning Authority Unknown Unknown [id number] 1 Unknown 11/10/26 Unknown Unknown Active Unknown Patient Care team information Care Team Personnel Name: Demario Patiño Position: No Access Member Role: Primary Care Physician Address: Address: [address] Care Team Related Persons Name: NICK GALAVIZ Address: [address] [phone] [facility] Name: JENNIFER QUINN Name: LORI FLORES
--- OUTSIDE RECORDS SUMMARY | 2023-09-03 11:40 | XMS_ITS | Continuity of Care Document ---
Author Organization [facility] Address [address] [place] [id number] Care Team Providers Care Cooper Helper Name Role Phone Demario Patiño Primary Care Physician [phone] Encounter [facility] NBR [id number] Date(s): 09/27/22 - 09/27/[address] [phone] Encounter Diagnosis Multiple abrasions(Discharge Diagnosis) - 09/27/22 Discharge Disposition: Home or Self Care Attending Physician: Nacho Thomas MD Admitting Physician: Nacho Thomas MD Allergies, Adverse Reactions, Alerts Substance Reaction Severity Status erythromycin Rash Unknown Active penicillin Rash Mild Active predniSONE Thrush Other Moderate Active Bactrim Rash Mild Active Functional Status 09/27/22 Recent Travel History No recent travel Medications Adderall 30 mg oral tablet 30 mg 1 tab, Oral, BID, 0 Refill(s) Start Date: 11/22/21 Status: Ordered oxyCODONE 15 mg oral tablet See Instructions, PRN as needed for pain, 1/2 tab Oral, max 5 per day, # 28 tab, 0 Refill(s), Pharmacy: [facility], 152, cm, 01/11/22 12:50:00 [...] Most recent to oldest [Reference Range]: 1 Temperature Temporal Artery [36-38 Deg C ] 37.0 Deg C (09/27/22 9:23 PM) Peripheral Pulse Rate [60-100 bpm] 99 bp m (09/27/22 9:23 PM) Respiratory Rate [12-24 br/min] 18 br/mi n (09/27/22 9:23 PM) Blood Pressure [90-140/60-90 mmHg] 107/9 3mmHg (09/27/22 9:23 PM) Weight Dosing 56.70 kg (09/27/22 9:38 PM) Weight Estimated 56.70 kg (09/27/22 9:23 PM) Height/Length Dosing 153.000 cm (09/27/22 9:38 PM) Height/Length Estimated 153.000 cm (09/27/22 9:23 PM) Social History Social History Type Response [...] Safety Implantable Status Assigning Authority Unknown Unknown [id number] Unknown 11/10/26 Unknown Unknown Active Unknown Emergency department Discharge instructions * William CHIN, Nacho Craven: PERFORM Event Display: ED Discharge Information Authored Date: [id number] HIRAM FLORES :1980 Age:42 years Sex:Female Visit Date:09/27/2022 Primary Care Physician: Demario Patiño Discharge Instructions We would like to thank you for allowing us to assist you with your healthcare needs. The following includes patient education materials and information regarding your injury/illness. Diagnosis from Today's Visit Multiple abrasions Discharge Vitals Temperature??(Temporal Artery) 98.6 ??F (37.0 ??C) Heart Rate??(Peripheral) 99 Respiratory Rate?? 18 Blood Pressure?? 107/93?? Height?? 60.24 in (153.000 cm) Weight??(Estimated) 125.02 lb (56.70 kg) Allergies predniSONE??(Thrush, Other) Bactrim??(Rash) penicillin??(Rash) erythromycin??(Rash) What to Do Next Instructions from Your Care Team Wash abrasions daily; apply bacitracin ointment twice a day until healed. ??Return emergency if increasing redness pain swelling signs of skin infection.?? Follow-up with orthopedics if persistent??joint discomforts. You were treated today on an emergency [...] How Much When Why Instructions Next Dose Unchanged dextroamphetamine- amphetamine (Adderall 30 mg oral tablet) 1 tab [...] Oral (given by mouth) Every 4 hours Patient/[employer] Open Stack Administrator Signature Patient Name:HIRAM FLORES I have received this information and my questions have been answered. Patient/[employer] Open [employer] Administrator Name: Patient/[employer] Administrator Signature: Relationship to Patient: Witness Name/Signature: Date: Electronically Signed on: 09/27/2022 21:56 EDTSigned by:MALI Patient Care team information Care Team Personnel Name: Demario Patiño Position: No Access Member Role: Primary Care Physician Address: Address: [address] Name: Deena Sommer Position: Nurse Member Role: Registered Nurse Name: Nacho Thomas MD Position: Physician Member Role: Attending Physician Address: Address: [facility] [address] Care Team Related Persons Name: NICK GALAVIZ Address: Home [address] [id number] [facility] Name: JENNIFER QUINN Name: LORI FLORES
--- OUTSIDE RECORDS SUMMARY | 2023-09-03 11:40 | XMS_ITS | Continuity of Care Document ---
Author Organization [facility] Address [address] [place] [address] Care Team Providers Care Set Making Machine Operator Name Role Phone Demario Patiño Primary Care Physician Encounter [facility] NBR [id number] Date(s): 01/16/22 - 01/16/[address] [address] Encounter Diagnosis Biceps tendinitis of left upper extremity(Discharge Diagnosis) - 01/12/22 Sprain of left acromioclavicular joint, initial encounter(Discharge Diagnosis) - 01/12/22 Subacromial impingement of left shoulder(Discharge Diagnosis) - 01/12/22 Discharge Disposition: Home or Self Care Attending Physician: Dionte Butler MD Admitting Physician: Dionte Butler MD Referring Physician: Dionte Butler MD Allergies, Adverse Reactions, Alerts Substance Reaction Severity Status erythromycin Rash Unknown Active penicillin Rash Mild Active predniSONE Thrush Other Moderate Active Bactrim Rash Mild Active Assessment and Plan Future Appointments Functional Status 01/16/22 Living Environment Home Environment No qualifying data available Prior ADL Status Independent Prior Mobility Status Independent Prior Instrumental ADL Level Independent Prior Cognitive-Communication Skills Ind ependent 01/16/22 ADLs Independent Antiembolism Device Graduated compressio n stockings, knee high, bilateral Recent Travel History No recent travel Other exposure to Infectious Disease Non e Medications Adderall 30 mg oral tablet 30 mg 1 tab, Oral, BID, 0 Refill(s) Start Date: 11/22/21 Status: Ordered oxyCODONE 7.5 mg oral tablet 7.5 mg = 1 tab, Oral, every 4 hr, 0 Refill(s) Start Date: 11/22/21 Status: Ordered Problem List Condition Confirmation Course Effective Dates Status H ealt Status Informant Acute bilateral low back pain [...] recent to oldest [Reference Range]: 1 2 3 Temperature Temporal Artery [36-38 Deg C] 36.3 Deg C (01/16/22 3:08 PM) 36.4 Deg C (01/16/22 10:16 AM) Temperature Temporal Artery (DegF) [97.3-100 Deg F] 97.34 Deg F (01/16/22 3:08 PM) Peripheral Pulse Rate [60-100 bpm] 83 bpm (01/16/22 3:45 PM) 83 bpm (01/16/22 3:30 PM) 96 bpm (01/16/22 3:15 PM) Respiratory Rate [12-24 br/min] 16 br/min (01/16/22 10:16 AM) Blood Pressure [90-140/60-90 mmHg] 109/70mmHg (01/16/22 3:45 PM) 110/64mmHg (01/16/22 3:30 PM) 116/66mmHg (01/16/22 3:15 PM) Mean Arterial Pressure, Cuff [65-140 mmHg] 83 mmHg (01/16/22 3:45 PM) 79 mmHg (01/16/22 3:30 PM) 83 mmHg (01/16/22 3:15 PM) Mean Arterial Pressure Cuff 82 mmHg (01/16/22 3:45 PM) 78 mmHg (01/16/22 3:30 PM) 81 mmHg (01/16/22 3:15 PM) Blood Pressure Location Right arm (01/16/22 3:08 PM) Blood Pressure Method Automatic (01/16/22 3:08 PM) Weight 59.000 kg (01/11/22 12:38 PM) Weight Dosing 59.000 kg (01/11/22 12:38 PM) Height 152.000 cm (01/11/22 12:38 PM) Height/Length Dosing 152.000 cm (01/11/22 12:38 PM) Social History Social History Type Response [...] Safety Implantable Status Assigning Authority Unknown Unknown [id number] Unknown 11/10/26 Unknown Unknown Active Unknown Discharge instructions * Event Display: Discharge Instructions History and physical note * Event Display: History and Physical Update Patient Care team information Personnel Name: Demario Patiño Address: Address: [address]
--- OUTSIDE RECORDS SUMMARY | 2023-09-03 11:41 | XMS_ITS | Patient Health Record ---
Author Organization [facility] Address [address] [place] [address] Care Team Providers Care Materials Associate Name Role Phone Perry SCHRADER, Gallo Primary Care Provid er [phone] Caty CHIN, Marlon Unavailable [phone] ALLERGIES Allergen (clinical drug ingredient) Drug/Non Drug Allergy documented on EMR Reaction Allergy Type Onset Date Status Substance with serotonin re-uptake inhibitor mechanism of action (substance) SSRIs (uncoded) sexual dysfucntion Allergy Active sulfamethoxazole / trimethoprim Bactrim Unknown Drug Allergy Active duloxetine Cymbalta sexual dysfunction Drug Allergy Active escitalopram Lexapro Unknown Drug Allergy Acti ve gabapentin Neurontin dizziness Drug Allergy Active paroxetine PARoxetine HCl Unknown Drug Allergy A ctive penicillin V Penicillin V Potassium Unknown Drug Allergy Active milnacipran Savella sexual dysfunction Drug Allergy Active sertraline Zoloft Unknown Drug Allergy Active REASON FOR REFERRAL No Information MEDICATIONS Medication SIG (Take, Route, Frequency, Duration) Notes Start Date End Date Status Prazosin HCl 1 2 cap(s) orally qhs for nightmares for 30 Not-Taking KlonoPIN 0.5 MG 1 tablet at bedtime Orally Once a day PRN Active Adderall 10 mg 1 tab(s) orally each evening for 30 day(s) 12/20/2018 Not-Taking oxyCODONE-Acetaminop hen 7.5-325 MG 1 tablet as needed Orally every 6 hrs per pt for back pain Active Adderall XR 10 mg 1 cap(s) orally once a day (in the morning) for 30 day(s) 12/20/2018 Not-Taking Atenolol 25 MG 1 tablet Orally Once a day for 30 day(s) Active tiZANidine HCl 4 mg take 1 tablet orally q8h prn for generalized body aches for 30 days Not-Taking traZODone HCl 50 MG 1 tablet at bedtime as needed Orally Once a day for 30 day(s) Active KlonoPIN 1 mg 1 tab(s) orally daily as needed for anxiety attacks for 30 days Not-Taking Clindamycin Phosphate 1% 1 sejal applied topically 2 times a day for acne for 30 day(s) 10/26/2014 Not-Taking Cinnamon 500 mg 2 cap(s) orally 2 times a day 01/21/2012 Not-Taking Ibuprofen 800 mg 1 tab(s) orally q8h prn for pain for 30 day(s) 03/13/2017 Not-Taking Topamax 100 mg 1 tab orally BID to prevent migraines Not-Taking Estradiol 0.5 MG 1 tab(s) Orally once a day Active Prazosin HCl 1 mg 2 cap(s) orally qhs for nightmares Not-Taking Adderall XR 30 mg 1 cap(s) orally once a day (in the morning) for 30 day(s) 12/20/2018 Active Topamax 100 1 tab orally BID to prevent migraines for 30 Not-Taking Imitrex 100 MG 1 tablet at least 2 hours between doses as needed Orally Twice a day PRN Active IMMUNIZATIONS Vaccine Route Administration Date Status Comme nts Tdap HISTORY Unknown 12/16/2009 Administered TD HISTORY Unknown 12/30/2019 Administered Influenza HISTORY Unknown 12/16/2009 Administered SOCIAL HISTORY Tobacco Use: Social History Observation Description Date Smoking Status WARNING: Information temporarily unavailable Sex Assigned At : Social History Observation Description Sex Assigned At Unknown SMOKING Question Answer Notes Are you a: current smoker How many cigarettes a day do you smoke? 11-20 (1 /2 to 1 pack) How soon after you wake up d o you smoke your first cigarette? 31-60 min How often do you smoke cigarettes? every day Are you interested in quitting? Not ready to gorge t Tobacco use other than smoking: Question Answer Notes Additional Findings: Tobacco User No DRUG SCREENING Question Answer Notes Have you used drugs other th an those for medical reasons in the past 12 months? Yes Drug of choice: Marijuana PROBLEMS Problem Type ICD Code Onset Dates Problem Status W/U Status Risk SNOMED Code Notes Problem Post traumatic stress disorder (PTSD) (F43.10) Active confirmed 47013130 Problem Depression with anxiety (F41.8) 7 Active confirmed 715370390 Problem Fibromyalgia (M79.7) Active confirmed 89611347 Problem Chronic low back pain (M54.5) Active confirmed 890080331 Problem Long-term use of high-risk medication (Z79.899) Active confirmed 158694084 Problem Tobacco dependency (F17.200) Active confirmed 97644491 Problem Migraine syndrome (G43.909) Active confirmed 16659952 Problem ADHD (attention deficit hyperactivity disorder), inattentive 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) Active confirmed 26156422 Problem Internal derangement of knee, left (M23.92) Active confirmed Derangement of knee (40161202) Problem Surgical menopause (E89.40) Active confirmed 485966006 Problem Localized osteoarthritis of left knee (M17.12) Active confirmed 266538772 Problem Hormone replacement therapy, postmenopausal (Z79.890) Active confirmed 736237186 PLAN OF TREATMENT Future Test Test Name Order Date CBC WITH AUTO DIFF 07/21/2018 COMPMET 07/21/2018 LIPID W/ CALCULATED LDL 07/21/2018 TSH 07/21/2018 Insurance Providers Payer Name Payer Address Payer Phone Subscriber Number Group Number Insured Name Patient Relationship to Insured Coverage Start Date Coverage End Date [place]ID [place] [employer] [place], [place] [id number] HIRAM FLORES Self - patient is the insured SELF [place]Y [place] [address] [place] [id number] HIRMA FLORES Self - patient is the insured MEDICATIONS ADMINISTERED Medication Instructions Date of Administration Dosage Notes dihydroergatamine (Dhe) 1.0 MG per ML 12/30/2015 1.0 mg metoclopramide (Reglan) 10MG per 2ML 12/30/2015 2 mL MEDICAL (GENERAL) HISTORY Medical History History ICD Code headache Tension PTSD ADD migraine headache back pain Dysplasia cervix Anxiety disorder generalized depression Hx of Ovarian Cyst Lap nino eating disorder distorted body image L third distal DIP joint mallet fracture 02/2014: Mirena IUD for DUB LT # [id number] REMOVED 05/2014 Controlled substance agreement signed Controlled substance agreement signed Surgical History Surgery Date(Month/Year) tubes tied 2009 D and C 2009 gall bladder removed 2008 Appendectomy April 2015 Total Vaginal Hysterectomy 19 OCT 2015 Hospitalization History Reason Date(Month/Year) dog bites-[facility] 12/30/2019
--- OUTSIDE RECORDS SUMMARY | 2023-09-03 11:41 | XMS_ITS | Encounter Summary ---
Author Organization [facility] Address [address] [place] [address] Care Team Providers Care Container Crane Operator Name Role Phone Unavailable Primary Care Provider Unavailabl e Encounter Details Date Type Department Care Team (Late st Contact Info) Description 10/02/2008 Orders Only [facility] - [facility] [place] [address], [place] [id number] Jose Franklin MD [address] [place] [address] Social History Tobacco Use Types Packs/Day Years Used Date Smoking Tobacco: Never Assessed Sex and Gender Information Value Date Recorded Sex Assigned at Not on file Gender Identity Not on file Sexual Orientation Not on file documented as of this encounter Plan of Treatment Not on file documented as of this encounter Procedures Procedure Name Priority Date/Time Associated Diagnosis Comments CYTOPATHOLOGY Routine 10/02/2008 0:00 EDT documented in this encounter Results * CYTOPATHOLOGY (10/02/2008 0:00 EDT) Pathology Report: CYTOPATHOLOGY REPORT ? Reports generated via electronic interface contain original data; ? however they are lacking the format of the original report. ? Caution should be taken when reading/interpreti ng unformatted reports. ? Name: ? HIRAM GALAVIZ ? Accession #: ? [id number] ? : ? 1980 (Age: 28) ??F ?Collect Date: ? 10/02/2008 ? Location: ? [facility] ? Receive Date: ? 10/05/2008 ? Provider: ?JOSE FRANKLIN MD ? Copy to: ? Specimen/Source: ?Pap Test, Vagina/Cervix/Endo cervix, ThinPrep Imaging ? System with manual evaluation ? Last Menstrual Period: ? 7/9/09 ? Menstrual/Pregnanc y Status: ? SPECIMEN ADEQUACY ? Satisfactory for Evaluation ? - transformation zone component absent ? GENERAL CATEGORIZATION ? Negative for Intraepithelial Lesion or Malignancy ? Document reviewed and electronically signed by: ? Chloe Van Buren, CT(ASCP) ? Report Date: ??10/12/2008 12:42 ? End of Report ? ZEB WEBB 10/02/2008 10/05/2008 Jose Franklin MD PATHOLOGY ORDERABLES Performing Organization Address City/State/[facility] Co de Phone Number ZEB WEBB [address] [phone] documented in this encounter Visit Diagnoses Not on filedocumented in this encounter
--- OUTSIDE RECORDS SUMMARY | 2023-09-03 11:41 | XMS_ITS | Encounter Summary ---
Author Organization [facility] Address [address] [place] [address] Care Team Providers Care Ophthalmology Surgical Technician Name Role Phone Lissa Moran Primary Care Provider [phone] Encounter Details Date Type Department Care Team (Latest Contact Info) Description 10/19/2015 10:56 EDT - 10/19/2015 23:59 EDT Hospital Encounter [address] [address] Unknown, Provider, Discharge Disposition: Home or Self Care Social History Tobacco Use Types Packs/Day Years Used Date Smoking Tobacco: Never Assessed Sex and Gender Information Value Date Recorded Sex Assigned at Not on file Gender Identity Not on file Sexual Orientation Not on file documented as of this encounter Discharge Disposition Disposition Code Departure Means Destination Home or Self Penitentiary documented in this encounter Plan of Treatment Not on file documented as of this encounter Visit Diagnoses Not on filedocumented in this encounter Care Teams Ophthalmology Surgical Technician Relationship Specialty Start Date End Date Lissa Moran ARNP [address] [place] [address] PCP - General 10/12/08 documented as of this encounter
--- OUTSIDE RECORDS SUMMARY | 2023-09-03 11:41 | XMS_ITS | Clinical Summary ---
Author Organization [facility] Address [address] [place] [address] Care Team Providers Care Rail Gang Supervisor Name Role Phone Lissa Moran Primary Care Provider [phone] Social History Tobacco Use Types Packs/Day Years Used Date Smoking Tobacco: Never Assessed Sex and Gender Information Value Date Recorded Sex Assigned at Not on file Gender Identity Not on file Sexual Orientation Not on file Plan of Treatment Health Maintenance Due Date Last Done Comments Hepatitis C Screen 1980 Hepatitis B Vaccine (1 of 3 - 19+ 3-dose series) 06/02 COVID-19 Vaccine (2022-24 season) 2022 Care Teams Rail Gang Supervisor Relationship Specialty Start Date End Date Lissa Moran ARNP [address] [place] [address] PCP - General 10/12/08
--- OUTSIDE RECORDS SUMMARY | 2023-09-03 11:41 | XMS_ITS | Encounter Summary ---
Author Organization [facility] Address [address] [place] [address] Care Team Providers Care Senior Clinical Study Manager Name Role Phone DeanSanderLissa OWEN Primary Care Provider [phone] Encounter Details Date Type Department Care Team (Late st Contact Info) Description 04/23/2015 Results Only [facility] [phone] Luis F Tai MD [address] [place] [phone] Social History Tobacco Use Types Packs/Day Years Used Date Smoking Tobacco: Never Assessed Sex and Gender Information Value Date Recorded Sex Assigned at Not on file Gender Identity Not on file Sexual Orientation Not on file documented as of this encounter Plan of Treatment Not on file documented as of this encounter Procedures Procedure Name Priority Date/Time Associated Diagnosis Comments SURGICAL PATHOLOGY Routine 04/23/2015 10 :22 EST documented in this encounter Results * SURGICAL PATHOLOGY (04/23/2015 10:22 EST) Pathology Report: SURGICAL PATHOLOGY REPORT Reports generated via electronic interface contain original data; however they are lacking the format of the original report. Caution should be taken when reading/interpreting unformatted reports. Name: ? HIRAM RICHARDSON ? Accession #: ? [id number] ? : ? 1980 (Age: 34) ??F ? Collect Date: ? 04/23/2015 ? Location: ? [facility] ? Receive Date: ? 04/26/2015 ? Provider: LUIS F TAI MD Copy to: FELIPE JASON FUR STORAGE CLERK ? Final Pathologic Diagnosis: APPENDIX, APPENDECTOMY: - ??Appendiceal mucosa with low grade dysplasia. See comment. - ??Acute appendicitis and periappendicitis with distal fibrous obliteration. - ??Diverticulosis of appendix. - ??Resection margin involved by low-grade dysplasia. Comment: The entire appendix was submitted for histologic evaluation. There's no evidence of high-grade dysplasia or malignancy. Inflated Pad Buffer slides of this case were reviewed at the intradepartmental GI consultation conference. Dr. Lopes 04/30/2015 11:32 AM Document reviewed and electronically signed by: ALEX HAMILTON MD Report ??Date: 05/04/2015 17:56 By the signature above, the attending physician certifies that he/she has personally conducted a gross and/or microscopic examination of the described specimens and rendered or confirmed the above diagnosis. Specimen(s) Received: Appendix Clinical History: Acute appendicitis Gross Description: ? Received in formalin labelled with proper patient identification (initials M, P) and appendix are two appendiceal tissues. The first is consistent with distal tip, 1.5 cm in length and averaging 0.9 cm in diameter. Minimal attached mesoappendix is present. The proximal serosa shows a 0.3 x 0.2 cm brown raised nodular excrescence. The surrounding serosa is dusky fong-brown. The margin of this tissue is slightly ragged and without obvious hemorrhage. Section show a pale fong wall surrounding a 0.2 cm in diameter a lumen containing minimal soft feces. The second tissue is consistent with the proximal portion, 0.8 cm in length and 0.8 cm in diameter. The resection margin is stapled. ??Minimal attached mesoappendix is present. The serosa is dull fong-brown. Areas of wall perforation are not identified. Sections show a rubbery fong-white wall surrounding a 0.2 cm in diameter lumen containing minimal soft feces. The specimen is entirely submitted, excluding the staple line, with the tip as longitudinal sections in 1 and the proximal portion as cross sections in 2. The braulio are removed and the resection margin submitted en face in block 3 on 04/30/2015. Marcia Duarte 04/28/2015 11:23 AM End of Report [facility] 04/23/2015 10:2 2 EST 04/26/2015 10:22 EDT Luis F Tai MD PATHOLOGY ORDERABL ES [facility] [address] [place] [address] documented in this encounter Visit Diagnoses Not on filedocumented in this encounter Care Teams Senior Clinical Study Manager Relationship Specialty Start Date End Date Lissa Moran ARNP [address] [place] [address] PCP - General 10/12/08 documented as of this encounter
--- OUTSIDE RECORDS SUMMARY | 2023-09-03 11:41 | XMS_ITS | Encounter Summary ---
Author Organization [facility] Address [address] [place] [address] Care Team Providers Care Director Loss Prevention Name Role Phone Unavailable Primary Care Provider Unavailabl e Encounter Details Date Type Department Care Team (Late st Contact Info) Description 12/27/2007 Before PRISM Converted Visit (Maple) [facility] - Maple conversion [address] [place] [address] Ronaldo Moran ARNP [address] [place] [address] Social History Tobacco Use Types Packs/Day Years Used Date Smoking Tobacco: Never Assessed Sex and Gender Information Value Date Recorded Sex Assigned at Not on file Gender Identity Not on file Sexual Orientation Not on file documented as of this encounter Plan of Treatment Not on file documented as of this encounter Procedures Procedure Name Priority Date/Time Associated Diagnosis Comments CYTOPATHOLOGY Routine 12/27/2007 0:00 EST documented in this encounter Results * CYTOPATHOLOGY (12/27/2007 0:00 EST) Pathology Report: CYTOPATHOLOGY REPORT ? Reports generated via electronic interface contain original data; ? however they are lacking the format of the original report. ? Caution should be taken when reading/interpreti ng unformatted reports. ? Name: ? HIRAM GALAVIZ ? Accession #: ? [id number] ? : ? 1980 (Age: 27) ??F ?Collect Date: ? 12/27/2007 ? Location: ? [facility] ? Receive Date: ? 12/31/2007 ? Provider: ?RONALDO WEAVER ? Copy to: ? Specimen/Source: ?Pap Test, Cervix, ThinPrep Imaging System with manual ?? evaluation ? Last Menstrual Period: ? 11/01/08 ? Other: ? HPVA - HPV testing requested if ASC-US on the current ThinPrep Pap test. ? SPECIMEN ADEQUACY ? Satisfactory for Evaluation ? - transformation zone component present ? GENERAL CATEGORIZATION ? Negative for Intraepithelial Lesion or Malignancy ? COMMENT ? A report for this sample was originally issued on 01/02/08. ??That report ?? stated that the sample source was vaginal and the transformation zone ? component was not applicable. ??Ronaldo WEAVER called 01/06/08 to correct the sample source to cervix. ??The report has been amended. ? Document reviewed and electronically signed by: ? José Luis Ford , [place](ASCP) ? Report Date: ??01/07/2008 07:23 ? End of Report ? [facility] 12/27/2007 12/31/2007 Ronaldo Moran SHAREPOINT ADMINISTRATOR PATHOLOGY ORDERAB LES [facility] [address] [place] [address] documented in this encounter Visit Diagnoses Not on filedocumented in this encounter
--- OUTSIDE RECORDS SUMMARY | 2023-09-03 11:41 | XMS_ITS | Encounter Summary ---
Author Organization [facility] Address [address] [place] [id number] Care Team Providers Care Reproduction Production Manager Name Role Phone Unavailable Primary Care Provider Unavailabl e Encounter Details Date Type Department Care Team (Late st Contact Info) Description 10/08/2008 Orders Only [facility] Laboratory Services - [facility] [address], [place] [id number] Renan Mcgee MD [address] [place] [address] Social History Tobacco Use Types Packs/Day Years Used Date Smoking Tobacco: Never Assessed Sex and Gender Information Value Date Recorded Sex Assigned at Not on file Gender Identity Not on file Sexual Orientation Not on file documented as of this encounter Plan of Treatment Not on file documented as of this encounter Procedures Procedure Name Priority Date/Time Associated Diagnosis Comments SURGICAL PATHOLOGY Routine 10/08/2008 0:00 EDT documented in this encounter Results * SURGICAL PATHOLOGY (10/08/2008 0:00 EDT) Pathology Report: SURGICAL PATHOLOGY REPORT ? Reports generated via electronic interface contain original data; ? however they are lacking the format of the original report. ? Caution should be taken when reading/interpreting unformatted reports. ? Name: ? GUILLAUME, HIRAM ? Accession #: ? [id number] ? : ? 1980 (Age: 28) ??F ? Collect Date: ? 10/08/2008 ? Location: ? [facility] ? Receive Date: ? 10/09/2008 ? Provider: RENAN MCGEE MD ? Copy to: JOSE FRANKLIN MD ? Final Pathologic Diagnosis: ? Uterine contents, products of conception: ? 1. ?Immature chorionic villi with hydropic changes. ??See comment. ? 2. ? Fragments of gestational endometrium with extensive necrosis. ? 3. ? Fragments of ectocervical mucosa, no pathologic features. ? Comment: ? Smoking Tobacco Cutter Operator sections were reviewed in the intradepartmental consultation conference. ??(Dr. Hastings)/mpl ? Document reviewed and electronically signed by: ? Cj Hastings MD ? Report ??Date: 10/12/2008 14:59 ? By the signature above, the attending physician certifies that he/she has ? personally conducted a gross and/or microscopic examination of the described ? specimens and rendered or confirmed the above diagnosis. ? Specimen(s) Received: ? Uterine contents ? Clinical History: ? Incomplete SAB complicated by hemorrhage ? Gross Description: ? Received in formalin and labelled Hiram Thurman is a 4.0 x 3.0 x 0.9 cm ?? aggregate of white, soft tissue admixed with a large amount of hemorrhage. ??No ?? parts are grossly identified. ??The specimen is submitted entirely as (A1) (A3). ??(Dr. Bah)/mpl ? End of Report ? [facility] 10/08/2008 10/09/2008 8:0 0 EDT Renan Mgcee MD PATHOLOGY ORDERABLES [facility] [address] [place] [address] documented in this encounter Visit Diagnoses Not on filedocumented in this encounter
--- OUTSIDE RECORDS SUMMARY | 2023-09-03 11:41 | XMS_ITS | Encounter Summary ---
Author Organization [facility] Address [address] [place] [address] Care Team Providers Care Supervisor Rubber Covering Name Role Phone Lissa Moran OWEN Primary Care Provider [phone] [phone] Encounter Details Date Type Department Care Team (Late st Contact Info) Description 10/19/2015 Results Only [facility] [phone] Renan Mcgee MD [address] [place] [address] Social History Tobacco Use Types Packs/Day Years Used Date Smoking Tobacco: Never Assessed Sex and Gender Information Value Date Recorded Sex Assigned at Not on file Gender Identity Not on file Sexual Orientation Not on file documented as of this encounter Plan of Treatment Not on file documented as of this encounter Procedures Procedure Name Priority Date/Time Associated Diagnosis Comments SURGICAL PATHOLOGY Routine 10/19/2015 12 :21 EDT documented in this encounter Results * SURGICAL PATHOLOGY (10/19/2015 12:21 EDT) Pathology Report: SURGICAL PATHOLOGY REPORT Reports generated via electronic interface contain original data; however they are lacking the format of the original report. Caution should be taken when reading/interpret ing unformatted reports. Name: ? HIRAM RICHARDSON ? Accession #: ? [id number] ? : ? 1980 (Age: 35) ??F ? Collect Date: ? 10/19/2015 ? Location: ? [facility] ? Receive Date: ? 10/21/2015 ? Provider: RENAN MCGEE MD Copy to: FELIPE JASON IT SALES REPRESENTATIVE ? Final Pathologic Diagnosis: UTERUS, CERVIX, BILATERAL FALLOPIAN TUBES AND OVARIES, HYSTERECTOMY AND BILATERAL SALPINGO-OOPHOREC COLIN: - ??Cervix: No specific pathologic features. - ??Endometrium: Proliferative endometrium. - ??Myometrium: No specific pathologic features. - ??Serosa: Fibrovascular serosal adhesions. - ??Fallopian tubes, bilateral: No specific pathologic features. - ??Ovary, right: Fibrovascular serosal adhesions. - ??Ovary, left: No specific pathologic features. Document reviewed and electronically signed by: CHRISTIANA FERRO MD Report ??Date: 10/25/2015 16:01 By the signature above, the attending physician certifies that he/she has personally conducted a gross and/or microscopic examination of the described specimens and rendered or confirmed the above diagnosis. Specimen(s) Received: Cervix, uterus and bilateral fallopian tubes and ovaries Clinical History: Abnormal uterine bleeding, dysmenorrhea, dyspareunia; clinical diagnosis code: N93.9, N94.6, N94.1 Gross Description: ? Received in formalin labelled with proper patient identification (initials M, P) and cervix, uterus, bilateral fallopian tubes and ovaries is an intact uterus and cervix (88 g, 8.0 cm cervix to fundus x 5.2 cm cornu to cornu x 4.2 cm anterior to posterior) with attached left and right ovaries (Left: 3.5 x 2.8 x 2.4 cm and Right: 4.5 x 3.3 x 3.0 cm) and left and right fimbriated fallopian tubes (Left: 5.2 cm in length x 0.7 cm in diameter and Right: 6.2 cm in length x 1.0 cm in diameter). ? The uterine serosa is ba-white and smooth. The endometrium is ba-brown with focal hemorrhage and has a thickness of 0.1 cm. The myometrium is ba-white and firm and ranges from 1.0 cm to 2.1 cm in thickness. ??The ectocervix is dull white and smooth, and the endocervix is ba-white with a ruffled appearance. The left and right ovaries have a ba-white to blue, smooth to nodular outer surface and sectioning discloses normal physiologic to cystic architecture. The cysts on the left contain clear fluid while the cysts on the right contain both clear and hemorrhagic fluid. The right ovary also contains a cyst with clotted blood measuring 2.5 cm in greatest diameter. The left and right fallopian tubes have ba-white to blue smooth serosa and sectioning discloses a pinpoint lumen throughout. ? Cardiology Clinical Consultant sections are submitted as follows: BLOCK XIE 1- ??endo and ectocervix, anterior aspect 2- ??lower uterine segment, anterior aspect 3-4- ??account retention representative sections of endomyometrium, anterior aspect 5- ??endo and ectocervix, posterior aspect 6- ??lower uterine segment, posterior aspect 7-8- ??account retention representative sections of endomyometrium, posterior aspect 9-10- ??entire fimbria and two account retention representative sections of fallopian tube, left 11-12- ??two account retention representative sections of ovary, left 13-14- ??entire fimbria and two account retention representative sections of fallopian tube, right 15-16- ??two account retention representative sections of ovary, right Dr. Roman 10/21/2015 2:38 PM End of Report [facility] 10/19/2015 12:2 1 EDT 10/21/2015 12:21 EDT Renan Mcgee MD PATHOLOGY ORDERABLES [facility] [address] [place] [address] documented in this encounter Visit Diagnoses Not on filedocumented in this encounter Care Teams Supervisor Rubber Covering Relationship Specialty Start Date End Date Lissa Moran ARNP [address] [place] [address] PCP - General 10/12/08 documented as of this encounter
--- OUTSIDE RECORDS SUMMARY | 2023-09-03 11:41 | XMS_ITS | Encounter Summary ---
Author Organization [facility] Address [address] [place] [address] Care Team Providers Care Clinical Documentation Manager Name Role Phone Ronaldo Moran Primary Care Provider [phone] [phone] Encounter Details Date Type Department Care Team (Late st Contact Info) Description 11/07/2006 Results Only [facility] - Maple conversion [address] [place] [address] Ronaldo Moran ARNP [address] [place] [address] Social History Tobacco Use Types Packs/Day Years Used Date Smoking Tobacco: Never Assessed Sex and Gender Information Value Date Recorded Sex Assigned at Not on file Gender Identity Not on file Sexual Orientation Not on file documented as of this encounter Plan of Treatment Not on file documented as of this encounter Procedures Procedure Name Priority Date/Time Associated Diagnosis Comments CYTOPATHOLOGY Routine 11/07/2006 0:00 EDT documented in this encounter Results * CYTOPATHOLOGY (11/07/2006 0:00 EDT) Pathology Report: CYTOPATHOLOGY REPORT Reports generated via electronic interface contain original data; however they are lacking the format of the original report. Caution should be taken when reading/interpreti ng unformatted reports. Name: ? HIRAM GALAVIZ ? Accession #: ? [id number] : ? 1980 (Age: 26) ??F ?Collect Date: ? 11/07/2006 Location: ? [facility] ? Receive Date: ? 11/14/2006 Provider: ?RONALDO WEAVER Copy to: ? Specimen/Source: ?ThinPrep Pap Test, Cervix/Endocervix, processed on [employer] ThinPrep Imaging System, with manual evaluation Last Menstrual Period: ? 10/02/06 Hormonal/Contracep tive Status: ? Yes Other: ? HPVA - HPV testing requested if ASC-US on the current ThinPrep Pap test. ? SPECIMEN ADEQUACY ? Satisfactory for Evaluation - transformation zone component present GENERAL CATEGORIZATION ? Negative for Intraepithelial Lesion or Malignancy INTERPRETATION ? Reactive cellular changes associated with inflammation present (includes repair). ? Document reviewed and electronically signed by: ? MARGIE FARIA MD ? Report Date: ??11/21/2006 13:49 End of Report [facility] 11/07/2006 11/14/2006 Ronaldo WEAVER PATHOLOGY ORDERAB LES [facility] [address] [place] [address] documented in this encounter Visit Diagnoses Not on filedocumented in this encounter Care Teams Clinical Documentation Manager Relationship Specialty Start Date End Date Ronaldo Moran ARNP [address] [place] [address] PCP - General 10/12/08 documented as of this encounter
--- OUTSIDE RECORDS SUMMARY | 2023-09-03 11:41 | XMS_ITS | Encounter Summary ---
Author Organization [facility] Address [address] [place] [address] Care Team Providers Care Pet Counselor Name Role Phone Dean, Ronaldo OWEN Primary Care Provider [phone] [phone] Encounter Details Date Type Department Care Team (Late st Contact Info) Description 07/22/2009 Results Only [facility] Laboratory Services - [facility] ([facility]) [address] [place], [place] [id number] Renan Mcgee MD [address] [place] [address] Social History Tobacco Use Types Packs/Day Years Used Date Smoking Tobacco: Never Assessed Sex and Gender Information Value Date Recorded Sex Assigned at Not on file Gender Identity Not on file Sexual Orientation Not on file documented as of this encounter Plan of Treatment Not on file documented as of this encounter Procedures Procedure Name Priority Date/Time Associated Diagnosis Comments SURGICAL PATHOLOGY Routine 07/22/2009 0:00 EDT documented in this encounter Results * SURGICAL PATHOLOGY (07/22/2009 0:00 EDT) Pathology Report: SURGICAL PATHOLOGY REPORT ? Reports generated via electronic interface contain original data; ? however they are lacking the format of the original report. ? Caution should be taken when reading/interpreti ng unformatted reports. ? Name: ? GUILLAUME, HIRAM ? Accession #: ? [id number] ? : ? 1980 (Age: 29) ??F ? Collect Date: ? 07/22/2009 ? Location: ? [facility] ? Receive Date: ? 07/22/2009 ? Provider: RENAN MCGEE MD ? Copy to: RONADLO ISAACP ? Final Pathologic Diagnosis: ? A. ?Fallopian tube, portion of right, tubal ligation: ? 1. ?Fallopian tube with no pathologic features. ? 2. ? Full cross sections identified. ? B. ?Fallopian tube, portion of left, tubal ligation: ? 1. ?Serosal fibrous adhesions of fallopian tube. ? 2. ? Full cross sections identified. ? Document reviewed and electronically signed by: ? Chloe Mehta, MD ? Report ??Date: 07/26/2009 21:52 ? By the signature above, the attending physician certifies that he/she has ? personally conducted a gross and/or microscopic examination of the described ? specimens and rendered or confirmed the above diagnosis. ? Specimen(s) Received: ? A. ?Portion of right fallopian tube ? B. ? Portion of left fallopian tube ? Clinical History: ? Desired sterilization ? Gross Description: ? Received in formalin labelled Hiram Thurman and portion right fallopian ?? tube is a 2.5 cm in length by 0.4 cm in average diameter ba-purple tubular ? soft tissue grossly consistent with a segment of fallopian tube. ??Sectioning ? reveals a ba-white cut surface with a pinpoint lumen throughout and adjacent ?? vessels with large diameters. ??Two quality audit representative cross sections are submitted ?? in (A). ? Received in formalin labelled Hiram Thurman and portion left fallopian tube ?? is a 1.8 cm in length by 0.4 cm in average diameter ba-purple tubular soft ? tissue grossly consistent with a segment of fallopian tube. ??The serosal aspect has abundant adherent ba-purple skin adhesions. ??Sectioning reveals a ba-white cut surface with a pinpoint lumen. ??Two quality audit representative cross sections are ? submitted in (B). ??(Abelino Antunez)/mms ? End of Report ? [facility] 07/22/2009 07/22/2009 8:3 0 EDT Renan Mcgee MD PATHOLOGY ORDERABLES Performing Organization Address City/State/[facility] Co de Phone Number [facility] [address] [place] [address] documented in this encounter Visit Diagnoses Not on filedocumented in this encounter Care Teams Pet Counselor Relationship Specialty Start Date End Date Ronaldo Moran ARNP [address] [place] [address] PCP - General 10/12/08 documented as of this encounter
--- OUTSIDE RECORDS SUMMARY | 2023-09-03 11:41 | XMS_ITS | Referral Summary ---
Author Organization [facility] Address [address] [place] [address] Care Team Providers Care Rn Plastic Surgery Name Role Phone Lissa Moran Primary Care Provider [phone] [phone] Social History Tobacco Use Types Packs/Day Years Used Date Smoking Tobacco: Never Assessed Sex and Gender Information Value Date Recorded Sex Assigned at Not on file Gender Identity Not on file Sexual Orientation Not on file Plan of Treatment Not on file Care Teams Rn Plastic Surgery Relationship Specialty Start Date End Date Lsisa Moran ARNP [address] [place] [address] PCP - General 10/12/08
--- OUTSIDE RECORDS SUMMARY | 2023-09-03 11:41 | XMS_ITS | Encounter Summary ---
Author Organization [facility] Address [address] [place] [address] Care Team Providers Care Chainstitch Binder Name Role Phone Ronaldo Moran Primary Care Provider [phone] [phone] Encounter Details Date Type Department Care Team (Late st Contact Info) Description 07/04/2005 Results Only [facility] - Maple conversion [address] [place] [address] Ronaldo Moran ARNP [address] [place] [address] Social History Tobacco Use Types Packs/Day Years Used Date Smoking Tobacco: Never Assessed Sex and Gender Information Value Date Recorded Sex Assigned at Not on file Gender Identity Not on file Sexual Orientation Not on file documented as of this encounter Plan of Treatment Not on file documented as of this encounter Procedures Procedure Name Priority Date/Time Associated Diagnosis Comments CYTOPATHOLOGY Routine 07/04/2005 0:00 EDT documented in this encounter Results * CYTOPATHOLOGY (07/04/2005 0:00 EDT) Pathology Report: CYTOPATHOLOGY REPORT Reports generated via electronic interface contain original data; however they are lacking the format of the original report. Caution should be taken when reading/interpreti ng unformatted reports. Name: ? HIRAM GALAVIZ ? Accession #: ? [id number] : ? 1980 (Age: 25) ??F ?Collect Date: ? 07/04/2005 Location: ? [facility] ? Receive Date: ? 07/06/2005 Provider: ?RONALDO WEAVER Copy to: ? Specimen/Source: ?ThinPrep Pap Test, Endocervix, processed on ZouxiuPrep Imaging System, with manual evaluation Last Menstrual Period: ? 03/2005 Hormonal/Contracep tive Status: ? Yes Treatment History: ? Colposcopy: abnormal Cryotherapy: abnormal Other: ? Additional clinical information: Previous atypical ? SPECIMEN ADEQUACY ? Satisfactory for Evaluation - transformation zone component present GENERAL CATEGORIZATION ? Negative for Intraepithelial Lesion or Malignancy INTERPRETATION ? Shift in esme present suggestive of bacterial vaginosis. ? Document reviewed and electronically signed by: ? DANILO Pena(ASCP) ? Report Date: ??07/11/2005 09:16 End of Report [facility] 07/04/2005 07/06/2005 Ronaldo WEAVER PATHOLOGY ORDERAB LES [facility] [address] [place] [address] documented in this encounter Visit Diagnoses Not on filedocumented in this encounter Care Teams Chainstitch Binder Relationship Specialty Start Date End Date Ronaldo Moran ARNP [address] [place] [address] PCP - General 10/12/08 documented as of this encounter
--- OUTSIDE RECORDS SUMMARY | 2023-09-03 11:41 | XMS_ITS | Encounter Summary ---
Author Organization [facility] Address [address] [place] [address] Care Team Providers Care Production Maintenance Mechanic Name Role Phone Lissa Moran Primary Care Provider [phone] [phone] Encounter Details Date Type Department Care Team (Latest Contact Info) Description 04/22/2015 16:22 EST - 04/22/2015 23:59 EST Hospital Encounter [address] [address] Unknown, Provider, Discharge Disposition: Home or Self Care Social History Tobacco Use Types Packs/Day Years Used Date Smoking Tobacco: Never Assessed Sex and Gender Information Value Date Recorded Sex Assigned at Not on file Gender Identity Not on file Sexual Orientation Not on file documented as of this encounter Discharge Disposition Disposition Code Departure Means Destination Home or Self Alf documented in this encounter Plan of Treatment Not on file documented as of this encounter Visit Diagnoses Not on filedocumented in this encounter Care Teams Production Maintenance Mechanic Relationship Specialty Start Date End Date Lissa Moran ARNP [address] [place] [address] PCP - General 10/12/08 documented as of this encounter
--- OUTSIDE RECORDS SUMMARY | 2023-09-03 11:41 | XMS_ITS | Encounter Summary ---
Author Organization [facility] Address [address] [place] [address] Care Team Providers Care Pipe Fitter [employer] Pipe Name Role Phone Unavailable Primary Care Provider Unavailabl e Encounter Details Date Type Department Care Team (Late st Contact Info) Description 12/06/2007 Before PRISM Converted Visit (Maple) [facility] - Maple conversion [address] [place] [address] Ross Cole MD [address] [place] [phone] Social History Tobacco Use Types Packs/Day Years Used Date Smoking Tobacco: Never Assessed Sex and Gender Information Value Date Recorded Sex Assigned at Not on file Gender Identity Not on file Sexual Orientation Not on file documented as of this encounter Plan of Treatment Not on file documented as of this encounter Procedures Procedure Name Priority Date/Time Associated Diagnosis Comments SURGICAL PATHOLOGY Routine 12/06/2007 0:00 EDT documented in this encounter Results * SURGICAL PATHOLOGY (12/06/2007 0:00 EDT) Pathology Report: SURGICAL PATHOLOGY REPORT ? Reports generated via electronic interface contain original data; ? however they are lacking the format of the original report. ? Caution should be taken when reading/interpreti ng unformatted reports. ? Name: ? OLMAN, HIRAM ? Accession #: ? [id number] ? : ? 1980 (Age: 27) ??F ? Collect Date: ? 12/06/2007 ? Location: ? [facility] ? Receive Date: ? 12/09/2007 ? Provider: ROSS COLE MD ? Copy to: ? Final Pathologic Diagnosis: ? Gallbladder, cholecystectomy: ? 1. ?Chronic cholecystitis. ? 2. ? Cholelithiasis (gross diagnosis). ? Document reviewed and electronically signed by: ? Albaro Padilla, MD ? Report ??Date: 12/11/2007 17:17 ? By the signature above, the attending physician certifies that he/she has ? personally conducted a gross and/or microscopic examination of the described ? specimens and rendered or confirmed the above diagnosis. ? Specimen(s) Received: ? Gallbladder ? Clinical History: ? Chronic cholecystitis with cholelithiasis ? Gross Description: ? Received in formalin labelled Olman and gallbladder is a 9.0 cm in ? length by 2.0 cm in diameter gallbladder received incised at its distal aspect ?? which includes a 1.0 cm in length by 0.3 cm in diameter cystic duct (cystic duct margin is inked black). ??A cystic duct lymph node is not discernible. ??The ? gallbladder is impacted by several hard multifaceted mixed-type choleliths which range from 1.5 to 1.0 cm in greatest dimension. ??The gallbladder mucosa is white and smooth to focally slightly trabecular. ??Located 1.5 cm from the distal end ?? of the gallbladder is a 0.2 cm in height septum which transverses the width of ?? the gallbladder in its distal aspect. ??The gallbladder wall measures 0.2 cm in ?? thickness and is covered by a smooth and white focally hyperemic serosa. ??Three sales representative rural power sections of the gallbladder, one of which includes the previously described septum, are submitted in one cassette. ??(Nanette Livingston/cj ? End of Report ? [facility] 12/06/2007 12/09/2007 16: 35 EDT Ross Cole MD PATHOLOGY ORDERABLE S [facility] [address] [place] [address] documented in this encounter Visit Diagnoses Not on filedocumented in this encounter
[2023-09-03 12:39] VITALS: BP 109/76; PULSE 85; RESP 14; O2SAT 98
== END 2023-09-03 12:54 | disposition home or self-care (01) ==
PROVIDERS: Emergency Provider Registered Nurse Emergency
DX: S90.31XA Contusion of right foot, initial encounter (principal); S93.601A Unspecified sprain of right foot, initial encounter; W22.8XXA Striking against or struck by other objects, initial encounter
CPT/HCPCS: 99283; 73630